=== PATIENT | male | born 1950 | race Caucasian/White ===

== ENCOUNTER → 2019-06-20 09:11 | Outpatient (CLI) | payer MEDICARE, OTHER, SELFPAY ==
--- NOTE | 2019-06-20 | DI.RAD.S_ITS ---
PROCEDURE: XR KNEE RT 3V INDICATIONS: RIGHT KNEE PAIN TECHNIQUE: 3 views of the knee were acquired. COMPARISON: None. FINDINGS: Bones: No fractures or dislocations. No suspicious bony lesions. Mild medial compartment joint space thinning. Soft tissues: No joint effusion. No suspicious soft tissue calcifications. IMPRESSION: Mild medial compartment joint space thinning, indicating mild osteoarthritis. Dictated by: Juan Finney M.D. on 06/20/2019 at 10:38 Approved by: Juan Finney M.D. on 06/20/2019 at 10:44
--- NOTE | 2019-06-20 | DI.RAD.S_ITS ---
PROCEDURE: XR HIP W PEL IF DONE RT 2V INDICATIONS: RIGHT HIP PAIN TECHNIQUE: 2 views of the hip were acquired. COMPARISON: None. FINDINGS: Bones: No fractures or dislocations. No suspicious bony lesions. The visualized pelvic ring appears intact. Mild to moderate joint space thinning along the acetabulum Soft tissues: No suspicious soft tissue calcifications or masses. IMPRESSION: Mild to moderate osteoarthritis of the right hip joint seen as joint space thinning along the acetabular roof. Dictated by: Juan Finney M.D. on 06/20/2019 at 10:44 Approved by: Juan Finney M.D. on 06/20/2019 at 10:45
== END ==
PROVIDERS: Visit Provider Family Medicine
DX: M25.551 Pain in right hip (principal); M25.561 Pain in right knee; M16.11 Unilateral primary osteoarthritis, right hip; M17.11 Unilateral primary osteoarthritis, right knee
CPT/HCPCS: 73502; 73562

== ENCOUNTER 2019-10-17 06:48 | Day surgery (SDC) | payer MEDICARE, OTHER, SELFPAY ==
[2019-10-13 07:27] VITALS: BMI 36.2
[2019-10-17 07:11] VITALS: BP 203/114; PULSE 73; RESP 16; TEMP 36.6; O2SAT 98; BMI 36.2
[2019-10-17 07:40] VITALS: BMI 36.2
== END 2019-10-17 07:55 | disposition home or self-care (01) ==
PROVIDERS: PCP Family Medicine; Visit Provider Specialist

== ENCOUNTER 2019-11-21 06:43 | Day surgery (SDC) | payer MEDICARE, OTHER, SELFPAY ==
[2019-11-10 09:30] VITALS: BMI 36.4
[2019-11-21] VITALS (9 sets, daily range): BP systolic 116–187; BP diastolic 72–119; PULSE 52–74; RESP 11–20; TEMP 36–36.2; O2SAT 93–98; BMI 36.4
[2019-11-21] MEDS: LACTATED RINGERS 1,000 ML 42 ML IV (07:30)
--- NOTE | 2019-11-21 07:46 | PM.HP.1 ---
History of Present Illness History of Present Illness Date Patient Seen: 11/21/19 Time Patient Seen: 07:46 Chief complaint: [id number] UMBILICAL HERNIA REPAIR W/POSS MESH Narrative: The patient is a gentleman here for repair of an umbilical hernia that is become symptomatic. He was scheduled in the past but did not get the instructions to stop the Xarelto. So he was rescheduled for today. Patient History Medical History Afib (Acute) Asthma (Acute) Chest pain (Acute) HTN (hypertension) (Acute) Sleep apnea (Acute) Surgical History H/O cardiac radiofrequency ablation (Acute) Hx of heart artery stent (Acute ~12/2009) Family & Social History Social History: household members spouse Tobacco & Substance use: Smoking Status Former smoker alcohol intake current Substance Use Type does not use Meds Home Medications and Allergies Home Medications Medication Instructions Recorded Confirmed Type albuterol sulfate 90 mcg/actuation 2 puff INHALATION Q6H PRN 09/06/19 11/21/19 History aerosol inhaler aspirin 81 mg tablet,delayed 81 mg PO DAILY 09/06/19 11/21/19 History release atorvastatin 80 mg tablet 80 mg PO DAILY 09/06/19 11/21/19 History chlorthalidone 25 mg tablet 12.5 mg PO DAILY tab 09/06/19 10/17/19 History finasteride 1 mg tablet 1 mg PO DAILY 09/06/19 11/21/19 History green tea leaf extract 150 mg 150 mg PO DAILY 09/06/19 11/21/19 History capsule isosorbide dinitrate 30 mg tablet 30 mg PO DAILY tab 09/06/19 11/21/19 History lisinopril 40 mg tablet 40 mg PO DAILY 09/06/19 11/21/19 History methylcellulose (laxative) 500 mg 500 mg PO DAILY 09/06/19 11/21/19 History tablet nitroglycerin 0.4 mg sublingual 0.4 mg SL Q5M PRN 09/06/19 11/10/19 History tablet terazosin 5 mg capsule 5 mg PO DAILY 09/06/19 11/21/19 History metoprolol succinate 50 mg PO DAILY 10/13/19 11/21/19 History rivaroxaban [Xarelto] 20 mg PO QPM 10/13/19 11/21/19 History Allergies Allergy/AdvReac Type Severity Reaction Status Date / Time No Known Drug Allergies Allergy Unverified 10/17/19 07:13 Review of Systems Review of Systems Narrative: No recent chest pain. Does have some exertional shortness of breath. No black or bloody bowel movements. No seizures or blackouts. No pulmonary symptoms. Exam Vital Signs (past 8 hours): - 11/21/19 07:25 Temperature 96.9 F L Pulse Rate 74 Respiratory Rate 18 Blood Pressure 187/119 H Pulse Oximetry 97 Oxygen Delivery Method Room Air Narrative Exam Narrative: Pleasant gentleman with a BMI of 36 in no apparent distress. Lungs are clear to auscultation no rales or rhonchi. Heart somewhat irregular no murmur gallop. Abdomen is protuberant soft nontender. He has an umbilical hernia. No rashes of the skin in the surgical area. Assessment & Plan Assessment & Plan narrative: Patient with an umbilical hernia for repair. The risks of bleeding infection recurrence to have been discussed with him. Will resume his Xarelto sometime in the postoperative.
--- NOTE | 2019-11-21 07:49 | PM.PREOP ---
Pre-operative Note Interval Note History & Physical reviewed/Exam performed by Physician: Yes Changes to H&P: No
[2019-11-21] MEDS: CEFAZOLIN 2 GM/100 ML FROZ.PIGGY IV (07:50)
--- NOTE | 2019-11-21 07:56 | SUR.PREOP ---
Pt stated he did not take his metoprolol today, but brought it with him. Pt had a baggie full of different pills. Metoprolol medication identified and pt took it per Dr. Salmeron's instruction prior to going in to OR. Pt left unit for the OR in stable condition.
--- NOTE | 2019-11-21 08:15 | SUR.OPER ---
Supine on padded OR bed, head on pillow, arms secured on padded arm boards at <90 degrees abduction, legs uncrossed, safety belt at thigh, tape over blanket over lower legs.
[2019-11-21] MEDS: BUPIVACAINE 0.5% (PF) VIAL 30 ML INJ (08:22)
--- NOTE | 2019-11-21 09:00 | PM.OP.1 ---
Operative Date/Time/Diagnoses Date of procedure: 11/21/19 Time of procedure: 09:00 Pre-op diagnosis: Umbilical hernia reducible Post-op diagnosis: same Procedure & Clinicians Procedure: Repair Same procedure as scheduled: Yes Indications: Symptomatic umbilical hernia Surgeon: Claudio Hart Click Yes if Unassisted: Yes Anesthesia Type: General Operative Notes Findings: Small defect. Contained omentum and preperitoneal fat Closure Type: primary Specimen(s): none sent Prosthetic devices, grafts, tissues, transplants, or devices: None Estimated Blood Loss (mL): 5 Blood products transfused: none Procedure in detail: The patient is placed supine on the operating room table and underwent general LMA anesthesia. He was prepped and draped in the usual fashion. A curvilinear incision was made beneath the umbilicus after injecting local into the region. Incision was carried down level the fascia. The hernia sac was found and entered and its contents reduced. This was principally omentum. The sac was dissected off the overlying skin and subcu fat. It was removed at the fascial level. The fascia was cleared of tissue. The defect was quite small and barely admitted the tip of finger. I chose not to use mesh. A 1 Ethibond suture was used to close the defect in using [id number] sutures. The umbilicus was tacked down to the fascia with an interrupted 3 0 Vicryl. The subcu was closed with interrupted 3 0 Vicryl and skin was closed with running 4 0 Vicryl subcuticular stitch and Steri-Strips. Complications: none Post-operative Condition: stable Disposition: PACU Plan for aftercare: Follow-up in the office
--- NOTE | 2019-11-21 09:43 | SUR.PHASEII ---
PT ARRIVED TO PHASE II VIA STRETCHER. PT SITTING UP AND EATING ICE CHIPS WITHOUT ANY DIFFICULTLY. PT DENIES ANY PAIN/DISCOMFORT OR NAUSEA AT THIS TIME. DRSG OBSERVED TO BE C/D/I. PT BROUGHT TO BEDSIDE. REVIEWED DC INSTRUCTIONS WITH PT AND PT SPOUSE. BED IN LOWEST POSITION AND CALL LIGHT GIVEN TO PT. PT APPEARS COMFORTABLE AT THIS TIME.
--- NOTE | 2019-11-21 10:28 | SUR.PHASEII ---
Report from Rosa, pt waiting for MD to sign prescription, once done pt ready to go. dressed with assist from , pt left when ready and left in stable condition.
== END 2019-11-21 10:25 | disposition home or self-care (01) ==
PROVIDERS: PCP Family Medicine; Visit Provider Specialist
PROC: (CPT 49585; principal; 2019-11-21 07:45)
DX: K42.0 Umbilical hernia with obstruction, without gangrene (principal); I48.91 Unspecified atrial fibrillation; J45.909 Unspecified asthma, uncomplicated; I10 Essential (primary) hypertension; G47.30 Sleep apnea, unspecified; Z87.891 Personal history of nicotine dependence
CPT/HCPCS: 49585; J0690; J1100; J1885; J2250; J2405; J2704; J3010

== ENCOUNTER → 2020-01-18 15:38 | Outpatient (CLI) | payer MEDICARE, OTHER, SELFPAY ==
--- NOTE | 2020-01-18 | DI.RAD.S_ITS ---
PROCEDURE: XR ANKLE LT MIN 3V INDICATIONS: left ankle pain TECHNIQUE: 3 views of the ankle were acquired. COMPARISON: None. FINDINGS: Bones: Nondisplaced fracture of the tip of the lateral malleolus. Overlying soft tissue swelling Numerous vascular calcifications incidentally noted. IMPRESSION: Lateral malleolar fracture. Soft tissue swelling. Dictated by: Toy Chester M.D. on 01/18/2020 at 16:28 Approved by: Toy Chester M.D. on 01/18/2020 at 16:30
== END ==
PROVIDERS: PCP Family Medicine; Referring Provider Family Medicine; Visit Provider Family Medicine
DX: M25.572 Pain in left ankle and joints of left foot (principal); S82.65XA Nondisplaced fracture of lateral malleolus of left fibula, initial encounter for closed fracture; X58.XXXA Exposure to other specified factors, initial encounter
CPT/HCPCS: 73610

== ENCOUNTER → 2020-09-01 08:24 | Outpatient (CLI) | payer MEDICARE, OTHER, SELFPAY ==
[2020-09-03 01:56] LABS: COVID19 Sendout Not Detected (Not Detect)
== END ==
PROVIDERS: PCP Family Medicine; Visit Provider Student in an Organized Health Care Education/Training Program
DX: Z11.59 Encounter for screening for other viral diseases (principal)
CPT/HCPCS: 87635

== ENCOUNTER 2020-09-04 08:20 | Day surgery (SDC) | payer MEDICARE, OTHER, SELFPAY ==
[2020-09-04] VITALS (10 sets, daily range): BP systolic 164–200; BP diastolic 103–128; PULSE 68–87; RESP 14–18; TEMP 36.2–36.9; O2SAT 96–98; BMI 35.8
--- NOTE | 2020-09-04 | PATH_ITS ---
[facility] Accession Number: [id number] . 01 Material submitted: . PART A: colon - COLON POLYPS AT 60CM PART B: colon - TRANSVERSE COLON POLYP AT 160CM . 01 Clinical history: . A: POLYPS X2 . 02 Diagnosis: A. Colon Polyps at 60 cm, Biopsies: Hyperplastic polyp x2. . B. Transverse Colon Polyp at 160 cm, Biopsy: Sessile serrated adenoma. MRV 09/07/2020 1236 Local . 02 Electronically signed: . Dandre Olguin MD, PhD, Pathologist NPI- [id number] . 01 Gross description: . A. Received in formalin, labeled colon polyps at 60 cm, and consists of two wells-pink polyps measuring 0.6 x 0.5 x 0.3 cm in aggregate. The margins are inked blue. The specimen is entirely submitted in cassette A1. B. Received in formalin, labeled polyp at transverse colon 130 cm, and consists of a 1.0 x 0.7 x 0.4 cm wells-pink polyp. The margin is inked blue. The specimen is bisected and entirely submitted in cassette B1. ([id number]) /MRV 09/05/2020 1258 Local . 02 Pathologist provided ICD-10: D12.3, K63.5 . 02 CPT . 787091, [id number] Performed at: 01 [facility] [address], [place], [place] [id number] MD Eugenio Rich MD Phone: [phone] Performed at: [facility] [address] [place], [place] [id number] MD hCristel Watson MD Phone: [phone]
[2020-09-04] MEDS: LACTATED RINGERS 1,000 ML 200 ML IV ×2 (08:59→11:11)
--- NOTE | 2020-09-04 10:00 | PM.HP.1 ---
History of Present Illness History of Present Illness Date Patient Seen: 09/04/20 Time Patient Seen: 09:45 Chief complaint: SCREENING COLONOSCOPY Narrative: The patient is a gentleman here for a screening colonoscopy. Last exam was over 9 years ago. Patient History Medical History Afib (Acute) Asthma (Acute) Chest pain (Acute) HTN (hypertension) (Acute) Sleep apnea (Acute) Surgical History (Updated 09/04/20 @ 10:01 by Claudio Hart MD) H/O cardiac radiofrequency ablation (Acute) History of umbilical hernia repair (Acute) Hx of heart artery stent (Acute ~12/2009) Family & Social History Social History: household members spouse Tobacco & Substance use: Smoking Status Former smoker alcohol intake current alcohol intake frequency a few times a week Substance Use Type does not use Meds Home Medications and Allergies Home Medications Medication Instructions Recorded Confirmed Type albuterol sulfate 90 mcg/actuation 2 puff INHALATION Q6H PRN 09/06/19 09/04/20 History aerosol inhaler aspirin 81 mg tablet,delayed 81 mg PO DAILY 09/06/19 09/04/20 History release atorvastatin 80 mg tablet 80 mg PO DAILY 09/06/19 09/04/20 History finasteride 1 mg tablet 1 mg PO DAILY 09/06/19 09/04/20 History green tea leaf extract 150 mg 150 mg PO DAILY 09/06/19 09/04/20 History capsule isosorbide dinitrate 30 mg tablet 30 mg PO DAILY tab 09/06/19 09/04/20 History lisinopril 40 mg tablet 40 mg PO DAILY 09/06/19 09/04/20 History methylcellulose (laxative) 500 mg 500 mg PO DAILY 09/06/19 09/04/20 History tablet nitroglycerin 0.4 mg sublingual 0.4 mg SL Q5M PRN 09/06/19 09/04/20 History tablet terazosin 5 mg capsule 5 mg PO DAILY 09/06/19 09/04/20 History metoprolol succinate 50 mg PO DAILY 10/13/19 09/04/20 History oxycodone-acetaminophen [Percocet] See Rx Instructions .ROUTE 11/21/19 09/04/20 Rx .COMPLEX PRN #14 tab rivaroxaban 20 mg tablet 20 mg PO QPM 08/27/20 09/04/20 History etodolac 1 mg BID 09/04/20 09/04/20 History Allergies Allergy/AdvReac Type Severity Reaction Status Date / Time No Known Drug Allergies Allergy Verified 09/04/20 08:37 Review of Systems Review of Systems Narrative: Atrial fibrillation rate controlled with beta lópez. Chronically anticoagulated. Bruises easily. On medication for hypertension. History of cardiac disease on medication for same. No recent chest pain. No unusual shortness of breath. ROS: Yes All systems reviewed with the patient and are negative except as otherwise documented Exam Vital Signs (past 8 hours): - 09/04/20 08:30 09/04/20 08:45 09/04/20 09:00 Temperature 97.1 F L Pulse Rate 83 83 84 Respiratory Rate 18 16 Blood Pressure 200/120 H 187/126 H 184/103 H Pulse Oximetry 98 97 09/04/20 09:19 Temperature Pulse Rate 87 Respiratory Rate 14 Blood Pressure 181/110 H Pulse Oximetry 97 Oxygen Delivery Method Room Air Narrative Exam Narrative: Pleasant cooperative patient no apparent distress. Lungs are clear to auscultation. No rales or rhonchi. Heart irregularly irregular rate and rhythm no murmur gallop. Abdomen is soft protuberant nontender without mass. No obvious hernias. Scar from umbilical hernia repair seen Patient is alert and oriented x3. Assessment & Plan Assessment & Plan narrative: The patient for a screening colonoscopy. I have discussed the procedure with them. Risks of bleeding, perforation which would necessitate major operation, failure to find remove all lesions, the potential tattoo were all discussed. All questions were answered. They wished to proceed.
--- NOTE | 2020-09-04 10:03 | PM.PREOP ---
Pre-operative Note COVID-19 COVID-19 status: Negative Result date/Date tested (Pos, Neg/Pending): 09/01/20 Interval Note History & Physical reviewed/Exam performed by Physician: Yes Changes to H&P: No ASA Class (for procedural sedation): III
[2020-09-04] MEDS: METOPROLOL TARTRATE 5 MG/5 ML INJ IV ×2 (10:10→10:16)
[2020-09-04] MEDS: HYDRALAZINE 20 MG/ML VIAL 10 MG IV (10:22)
--- NOTE | 2020-09-04 10:41 | SUR.PREOP ---
Dr Hart updated re: BP. No further orders at this time.
[2020-09-04] MEDS: MIDAZOLAM 5 MG/5 ML VIAL IV (10:48)
[2020-09-04] MEDS: fentaNYL 250 MCG/5 ML INJ IV (10:48)
--- NOTE | 2020-09-04 11:11 | PM.OP.ENDO ---
Operative Date/Time/Diagnoses Date of procedure: 09/04/20 Time of procedure: 11:12 Pre-op diagnosis: Screening examination. Last colonoscopy over 9 years ago Procedure & Clinicians Study performed: Colonoscopy with hot snare polypectomy and cauterization of small lesions Same procedure as scheduled: Yes Indications: Screening Surgeon: Claudio Hart Procedure Notes SCOAP/Timeout: Performed. Procedure in detail: The patient was placed in the left lateral decubitus position and underwent IV sedation directed by the surgeon consisting of fentanyl and Versed. He was also given medication for his blood pressure including IV metoprolol and hydralazine. This brought his blood pressure down to a high but acceptable level. Digital exam was unremarkable though I could not feel his prostate well due to his anatomy. The scope was inserted and advanced through the rectum into the sigmoid, descending, transverse, and ascending colon. Two polyps were identified near when another it at about 60 cm from the anal verge. These were removed with hot snare and appeared to be completely removed. A Stiffener was inserted and pressure applied and we ultimately made our way into the cecum. The cecum was reached identified by the ileocecal valve.. The scope was gradually brought out. Additional Polyps were found at the proximal transverse colon and at 130 cm. The lesion in the proximal transverse colon was attempted to be snared but essentially this destroyed most of the lesion and the little residual was cauterized. The lesion at 130 cm from the anal verge was a flat lesion and snared and the surrounding cauterized and it too appeared to be completely destroyed/removed. There were 2 other small polypoid lesions which I cauterized. The scope ultimately was retroflexed in the rectum. The appearance was normal except for scarring on old hemorrhoidal disease. No active ulceration or inflammation noted.. The scope was removed and the patient tolerated the procedure well. The prep was very good. Scope withdrawal time: 8min(20 total) Sedation minutes: 43 Findings: polyp (Multiple) Specimen(s): other (Polyps) Complications: none Post-procedure Recommendations: Colonscopy in 3 years Follow up: as needed Disposition: PACU
--- NOTE | 2020-09-04 11:56 | SUR.PHASEII ---
Patient instructed to take his blood pressure medications as soon as he returns home. BP 175/105; asymptomatic. Two cups of coffee tolerated without difficulty. Home with in stable condition. All belongings returned to patient.
== END 2020-09-04 11:57 | disposition home or self-care (01) ==
PROVIDERS: PCP Student in an Organized Health Care Education/Training Program; Referring Provider Specialist; Visit Provider Specialist
PROC: 0DJD8ZZ Inspection of Lower Intestinal Tract, Via Natural or Artificial Opening Endoscopic (ICD-10-PCS; CPT 45378; principal; 2020-09-04 09:15)
DX: Z12.11 Encounter for screening for malignant neoplasm of colon (principal); I48.91 Unspecified atrial fibrillation; J45.909 Unspecified asthma, uncomplicated; I10 Essential (primary) hypertension; G47.33 Obstructive sleep apnea (adult) (pediatric); D12.3 Benign neoplasm of transverse colon
CPT/HCPCS: 45385; 99152; 99153; J0360; J2250; J3010

== ENCOUNTER → 2020-09-06 13:59 | Outpatient (CLI) | payer MEDICARE, OTHER, SELFPAY ==
[2020-09-06 15:13] LABS: Add Manual Diff / Slide Review NO; Basophils Absolute Auto 0 /uL (0-100); Basophils Percent Auto 0.6 % (0-2); Eosinophils Absolute Auto 100 /uL (0-450); Hematocrit 39.6 % (41-53); Hemoglobin 13.4 g/dL (13.5-17.5); Lymphocytes Absolute Auto 1600 /uL (1100-4500); Lymphocytes Percent Auto 32.8 % (25-40); Mean Corpuscular HGB Conc 33.9 % (30-36); Mean Corpuscular Volume 88.3 fL (80-100); Monocytes Absolute Auto 400 /uL (0-900); Monocytes Percent Auto 9.4 % (3-14); Neutrophils Absolute Auto 2600 /uL (1500-7000); Neutrophils Percent Auto 55.2 % (50-75); Platelet Count 165 X10^3/uL (150-400); Red Blood Cell Count 4.48 X10^6/uL (4.5-5.9); Red Cell Distribution Width 13.8 % (11.6-14.8); White Blood Cell Count 4.7 X10^3/uL (4.5-11.0)
== END ==
PROVIDERS: PCP Student in an Organized Health Care Education/Training Program; Referring Provider Specialist; Visit Provider Specialist
DX: K62.5 Hemorrhage of anus and rectum (principal)
CPT/HCPCS: 36415; 85025; 99213

== ENCOUNTER → 2021-06-14 08:31 | Outpatient (CLI) | payer MEDICARE, OTHER, SELFPAY ==
--- NOTE | 2021-06-14 | DI.RAD.S_ITS ---
PROCEDURE: XR LUMBAR SPINE 2-3V INDICATIONS: Low back pain TECHNIQUE: 3 views of the lumbar spine were acquired. COMPARISON: None. FINDINGS: Bones: 5 [id number] vertebrae are present. There is normal bony alignment. No vertebral body compression fractures. No suspicious bony lesions. There is moderate degenerative disc disease along the lumbosacral spine from thoracolumbar junction to the lumbosacral junction. No abnormal subluxation is present, no prior compression fracture is seen. Soft tissues: Overlying bowel gas pattern is normal. No suspicious soft tissue calcifications. IMPRESSION: Moderate degenerative disc disease and facet osteoarthritis along the lumbosacral spine becoming progressively more prominent at the facet joints from L3 through S1 to the degree that significant spinal and foraminal stenosis likely is present at least at L4-5 and L5-S1. Dictated by: Juan Finney M.D. on 06/14/2021 at 10:01 Approved by: Juan Finney M.D. on 06/14/2021 at 10:02
== END ==
PROVIDERS: PCP Student in an Organized Health Care Education/Training Program; Referring Provider Student in an Organized Health Care Education/Training Program; Visit Provider Student in an Organized Health Care Education/Training Program
DX: M54.5 Low back pain (principal); M51.36 Other intervertebral disc degeneration, lumbar region; M51.37 Other intervertebral disc degeneration, lumbosacral region; M47.816 Spondylosis without myelopathy or radiculopathy, lumbar region; M47.817 Spondylosis without myelopathy or radiculopathy, lumbosacral region
CPT/HCPCS: 72100

== ENCOUNTER 2021-09-13 22:32 | Emergency (ER) | payer MEDICARE, OTHER, SELFPAY ==
[2021-09-13 22:50] VITALS: BP 209/116; PULSE 80; RESP 18; TEMP 36.4; O2SAT 99; BMI 34.3
--- NOTE | 2021-09-13 23:37 | ED_ITS ---
HPI - Neck Pain/Injury General Chief Complaint: Neck Pain/Injury Stated Complaint: lower back and neck pain Time Seen by Provider: 09/13/21 23:36 Source: patient and other (surgical PA) Mode of arrival: EMS Limitations: no limitations History of Present Illness HPI Narrative: This is a 70-year-old gentleman who had an outpatient laminectomy and a surgical site earlier today. Patient states his surgery started about 2:00 p.m. and he was completed by round 5:00 p.m.. He noted that he was having some neck pain on both sides of neck particularly with rotation of his neck. He was given some pain medication IV there around 5:00 p.m. and discharged. He and his picked up his prescription for Percocet and had 1 tablet around 9:00 p.m. this evening and 1 tablet of hydroxyzine. His pain continued to worsen. His most comfortable position was leaning slightly forward but he has had difficulty finding a position of comfort. He states movement of his extremities does not seem to make it worse. He does not have any radiation of pain down his arm. He does not have any radiation to his chest. Mostly rotation, flexion extension seems to worsen it. Patient has had some increasing pain at his laminectomy site. He has some pain that shoots down towards his buttocks. He has not had any paresthesias or numbness or tingling down his lower extremities. He has not had any loss of bowel or bladder control. Patient has not had fevers. He denies chest pain or shortness of breath. He was nauseated but did EMS gave him some antinausea medication and then all which was helpful. He has been hypertensive. He does have a history of hypertension, atrial fibrillation and is on rivaroxaban and has been off his anticoagulant for several days. He does have a cardiac stent that was placed about 11 years ago. He takes terazosin, isosorbide, metoprolol and lisinopril daily. Patient states he has had all of his normal blood pressure medications. He also takes atorvastatin. He has exercise-induced asthma and only uses albuterol for this. Related Data Home Medications Medication Instructions Recorded Confirmed albuterol sulfate 90 mcg/actuation 2 puff INHALATION Q6H PRN 09/06/19 09/06/20 aerosol inhaler (Ventolin HFA) aspirin 81 mg tablet,delayed 81 mg PO DAILY 09/06/19 09/06/20 release (Adult Aspirin Regimen) atorvastatin 80 mg tablet (Lipitor) 80 mg PO DAILY 09/06/19 09/06/20 finasteride 1 mg tablet (Propecia) 1 mg PO DAILY 09/06/19 09/06/20 green tea leaf extract 150 mg 150 mg PO DAILY 09/06/19 09/06/20 capsule isosorbide dinitrate 30 mg tablet 30 mg PO DAILY tab 09/06/19 09/06/20 lisinopril 40 mg tablet 40 mg PO DAILY 09/06/19 09/06/20 methylcellulose (laxative) 500 mg 500 mg PO DAILY 09/06/19 09/06/20 tablet (Citrucel) nitroglycerin 0.4 mg sublingual 0.4 mg SL Q5M PRN 09/06/19 09/06/20 tablet (Nitrostat) terazosin 5 mg capsule 5 mg PO DAILY 09/06/19 09/06/20 metoprolol succinate 50 mg 50 mg PO DAILY 10/13/19 09/06/20 tablet,extended release 24 hr rivaroxaban 20 mg tablet 20 mg PO QPM 08/27/20 09/06/20 etodolac 400 mg tablet 1 mg BID 09/04/20 09/06/20 Previous Rx's Medication Instructions Recorded oxycodone-acetaminophen 5 mg-325 See Rx Instructions .ROUTE 11/21/19 mg tablet (Percocet) .COMPLEX PRN #14 tab oxycodone 5 mg tablet 5 mg PO QID PRN #14 tab 09/14/21 Allergies Allergy/AdvReac Type Severity Reaction Status Date / Time No Known Drug Allergies Allergy Verified 09/06/20 15:27 Review of Systems Review of Systems ROS Unobtainable: All systems reviewed & are unremarkable except as noted in HPI and below Patient History Medical History (Updated 09/14/21 @ 04:03 by Mana Leon DO) Afib Asthma Chest pain HTN (hypertension) Sleep apnea Surgical History (Updated 09/14/21 @ 04:03 by Mana Leon DO) H/O cardiac radiofrequency ablation History of umbilical hernia repair Hx of heart artery stent (~12/2009) Social History household members: spouse Smoking Status: Former smoker alcohol intake: current Smoking Status: Former smoker alcohol intake frequency: a few times a week Substance Use Type: does not use Exam Narrative Exam Narrative: GEN: well nourished, well appearing male, alert and oriented x 3, patient appears to be in mild to moderate distress. HEENT: Atraumatic, pupils are equal round reactive to light, extraocular movements are intact, nares are clear. HEART: Regular rate and rhythm without murmur, clicks, rubs. No carotid bruits, pulses are equal in upper and lower extremities LUNGS:Lungs clear to auscultation, no wheezes, rales, crackles, chest moves symmetrically ABD:bowel sounds normal, soft, non-tender, no guarding, rebound, rigidity, no masses noted, no hepatosplenomegaly :No CVA tenderness BACK: No cervical, thoracic or lumbar vertebral point tenderness. Patient has mildly decreased range of motion of the neck but can rotate easily to the 45?. Patient has some tension and pain in the paraspinal tissues of the lower cervical region but does not have any point tenderness. No bony tenderness. Rectal exam is deferred. Muscle strength is 5/5 in upper and lower extremities. Patient does not have any increased pain with range of motion or lifting his legs off the bed. Dorsalis pedis and tibialis pulses are 2+, 2+ pulses bilateral radial. Sensation is intact in upper and lower extremities. MSCL: Non-tender, no muscle atrophy, full range of motion of all 4 extremities. NEURO:CN 2-12 intact, sensation normal SKIN: Incision site, Initial Vital Signs Initial Vital Signs: Vital Signs Temperature 97.6 F 09/13/21 22:50 Pulse Rate 80 09/13/21 22:50 Respiratory Rate 18 09/13/21 22:50 Blood Pressure 209/116 H 09/13/21 22:50 Pulse Oximetry 99 09/13/21 22:50 Course Orders Ordered: Discontinued Medications Hydromorphone HCl (Hydromorphone 1 Mg Inj) 1 mg IV NOW ONE Stop: 09/14/21 00:58 Last Admin: 09/14/21 01:05 Dose: 1 mg Documented by: MAJO Hydromorphone HCl (Hydromorphone 1 Mg Inj) 1 mg IV NOW ONE Stop: 09/14/21 02:53 Last Admin: 09/14/21 02:55 Dose: 1 mg Documented by: MAJO Lorazepam (Lorazepam 2 Mg/Ml Inj) 1 mg IV NOW ONE Stop: 09/14/21 00:03 Last Admin: 09/14/21 00:13 Dose: 1 mg Documented by: MAJO Metoprolol Tartrate (Metoprolol Tartrate 5 Mg/5 Ml Inj) 5 mg IV Q5M STEFANIA Stop: 09/14/21 01:11 Last Admin: 09/14/21 01:35 Dose: 5 mg Documented by: Admin: 09/14/21 01:15 Dose: 5 mg Documented by: Admin: 09/14/21 01:05 Dose: 5 mg Documented by: MAJO Morphine Sulfate (Morphine 4 Mg/Ml Inj) 4 mg IV NOW ONE Stop: 09/14/21 00:03 Last Admin: 09/14/21 00:12 Dose: 4 mg Documented by: MAJO Oxycodone HCl (Oxycodone Ir 5 Mg Tablet) 10 mg PO NOW ONE Stop: 09/14/21 04:06 Last Admin: 09/14/21 04:18 Dose: 10 mg Documented by: MAJO Vital Signs Vital signs: Vital Signs - 8 hr 09/13/21 22:50 09/14/21 00:53 09/14/21 01:00 Temperature 97.6 F Pulse Rate 80 89 Respiratory Rate 18 Blood Pressure 209/116 H 224/132 H 200/137 H Pulse Oximetry 99 98 09/14/21 01:10 09/14/21 01:15 09/14/21 01:20 Temperature Pulse Rate Respiratory Rate Blood Pressure 182/113 H 169/97 H 166/96 H Pulse Oximetry 09/14/21 01:25 09/14/21 01:30 09/14/21 01:50 Temperature Pulse Rate 70 Respiratory Rate Blood Pressure 164/92 H 135/84 173/104 H Pulse Oximetry 98 09/14/21 02:00 09/14/21 02:08 09/14/21 02:10 Temperature Pulse Rate 63 63 55 L Respiratory Rate Blood Pressure 1598/89 H 146/81 H 161/95 H Pulse Oximetry 96 95 95 09/14/21 02:15 09/14/21 02:20 09/14/21 02:25 Temperature Pulse Rate 56 L 60 59 L Respiratory Rate Blood Pressure 151/84 H 151/88 H 147/90 H Pulse Oximetry 94 95 95 09/14/21 02:30 09/14/21 03:00 09/14/21 03:30 Temperature Pulse Rate 56 L 62 61 Respiratory Rate Blood Pressure 146/81 H Pulse Oximetry 95 96 95 09/14/21 04:00 09/14/21 04:55 09/14/21 04:56 Temperature Pulse Rate 61 79 Respiratory Rate Blood Pressure 189/103 H Pulse Oximetry 95 99 98 MDM - Neck Pain/Injury Lab Data Result diagrams: 09/14/21 00:38 09/14/21 00:38 Labs: Lab Results 09/14/21 09/14/21 09/14/21 Range/Units 00:38 00:38 00:38 WBC 9.1 (4.5-11.0) X10^3/uL RBC 4.80 (4.5-5.9) X10^6/uL Hgb 14.9 (13.5-17.5) g/dL Hct 42.3 (41-53) % MCV 88.1 (80-100) fL MCH 31.1 (26-34) PG MCHC 35.3 (30-36) % RDW 13.4 (11.6-14.8) % Plt Count 164 (150-400) X10^3/uL Neut % (Auto) 92.0 H (50-75) % Lymph % (Auto) 5.1 L (25-40) % [place] % (Auto) 2.6 L (3-14) % Eos % (Auto) 0.1 L (2-4) % Baso % (Auto) 0.2 (0-2) % Neut # (Auto) 8400 H (5141-4499) /uL Lymph # (Auto) 500 L (5020-4873) /uL [place] # (Auto) 200 (0-900) /uL Eos # (Auto) 0 (0-450) /uL Baso # (Auto) 0 (0-100) /uL PT 12.1 (10.1-12.7) SECONDS INR 1.1 (0.9-1.3) APTT 29 (26.4-36.2) SECONDS Sodium 138 (137-145) mmol/L Potassium 3.9 (3.4-5.1) mmol/L Chloride 105 (98-107) mmol/L Carbon Dioxide 23 (22-32) mmol/L BUN 15 (9-20) mg/dL Creatinine 0.70 (0.66-1.25) mg/dL Estimated GFR > 60.0 (>60) mL/min BUN/Creatinine Ratio 21.4 (6-22) Glucose 161 H (80-110) mg/dL Calcium 9.7 (8.4-10.2) mg/dL Total Creatine Kinase (55-170) U/L CK-MB (CK-2) (<2.37) ng/mL CK-MB (CK-2) Rel Index (1.5-5.0) % Troponin I (0.01-0.034) ng/mL 09/14/21 Range/Units 00:38 WBC (4.5-11.0) X10^3/uL RBC (4.5-5.9) X10^6/uL Hgb (13.5-17.5) g/dL Hct (41-53) % MCV (80-100) fL MCH (26-34) PG MCHC (30-36) % RDW (11.6-14.8) % Plt Count (150-400) X10^3/uL Neut % (Auto) (50-75) % Lymph % (Auto) (25-40) % [place] % (Auto) (3-14) % Eos % (Auto) (2-4) % Baso % (Auto) (0-2) % Neut # (Auto) (7735-6703) /uL Lymph # (Auto) (2547-6629) /uL [place] # (Auto) (0-900) /uL Eos # (Auto) (0-450) /uL Baso # (Auto) (0-100) /uL PT (10.1-12.7) SECONDS INR (0.9-1.3) APTT (26.4-36.2) SECONDS Sodium (137-145) mmol/L Potassium (3.4-5.1) mmol/L Chloride (98-107) mmol/L Carbon Dioxide (22-32) mmol/L BUN (9-20) mg/dL Creatinine (0.66-1.25) mg/dL Estimated GFR (>60) mL/min BUN/Creatinine Ratio (6-22) Glucose (80-110) mg/dL Calcium (8.4-10.2) mg/dL Total Creatine Kinase 998 H (55-170) U/L CK-MB (CK-2) 18.50 H (<2.37) ng/mL CK-MB (CK-2) Rel Index 1.9 (1.5-5.0) % Troponin I < 0.012 (0.01-0.034) ng/mL Imaging Data CT - cervical spine: Radiologist's Impression: [address] [address] [address] Scan Report Signed Patient: Dorian Holcomb MR#: [id number] : 1950 Acct:[id number] Age/Sex: 70 / M Date of Service: 09/14/21 Loc: ED Accession Number: [id number] ?? Procedure: CT cervical spine wo con Ordering Provider: Mana Leon D.O. PROCEDURE:? CT CERVICAL SPINE WO CON ? INDICATIONS:? 70-year-old male with neck pain status post lumbar laminectomy postop day 1 ? TECHNIQUE:? Noncontrast 3 mm thick sections acquired from the skull base to the T4 level.? Sagittal and coronal reformats were then constructed.? For radiation dose reduction, the following was used:? automated exposure control, adjustment of mA and/or kV according to patient size.? ? COMPARISON:? None. ? FINDINGS:? Image quality:? Excellent.? ? Bones:? No fractures or dislocations.? Visualized superior ribs are intact.? Multilevel degenerative disc disease noted throughout the mid to lower cervical spine with anterior osteophytes and bilateral foraminal stenosis throughout the exam. ? Soft tissues:? Soft tissue air noted tracking along the fascial planes particularly in the left neck is likely postoperative.? Additionally, there is air in the intracanalicular extradural space, likely epidural space, throughout the cervical spine, but particularly at the C2 level where there is some mass effect.? No intrathecal air. ? Incidental metallic device in the right external auditory canal, likely hearing aid. ? ? IMPRESSION:? ? 1. Scattered epidural air in the cervical spine is likely a sequelae of recent surgery.? No intrathecal or intracranial air.? There is associated air in the fascial plan es of the left neck as well.? ? 2. Multilevel degenerative disease and arthropathy, [id number] ? Note:? Critical results were discussed with Dr. Leon at 12:15 AM [place] time on 09/14/21 ? Approved by: Brayan Allen M.D. on 09/14/2021 at 0:24? CT chest/abd/pelvis: Radiologist's Impression: Cast with the spinal canal with paraspinal soft tissues as described above findings are likely related to recent surgery. No mediastinal air or pneumothorax present. Laminectomy levels L2 and L3 with high density material within the spinal canal these levels filling the canal, obscuring and displacing the nerve root extending to posterior paraspinal musculature consistent with postsurgical blood. Borders of complex fluid colle ction or poorly defined but measured 2.2 x 5.6 cm and transverse in cephalocaudal dimension respectively gas is also identified in spinal canal and extend cephalad along the extradural space. It is noted the collection feels the canal at these levels and obscures last displaces the nerve roots. ECG Data Attestation: I personally reviewed and interpreted this ECG as follows: Prior ECG tracings: not available for review Interpretation: AFib rate of 78 QRS of 104 and QTC 433. No acute ST elevation depression noted. MDM Narrative Medical decision making narrative: This is a 70-year-old male who is status post laminectomy today. Patient states medially postop he had neck pain his laminectomy was at the L2-L3 level an outpatient surgical facility. Patient states he did share this with the staff there he received some medication for his pain which was IV fentanyl and was discharged shortly thereafter. He has had increasing pain particularly in his neck. Patient has had some pain in his back and radiating into his buttocks but states majority of his pain is his neck and he has discomfort with movement and has had difficulty finding a position of comfort. After discharge patient has taken 1 dose of hydroxyzine and Percocet orally. He had not taken any other additional medications until EMS was contacted for transport. He denies any new numbness or tingling this times in his arms or legs. No weakness. He has urinated several times postoperatively. He does have a history of atrial fibrillation and is on Xarelto which was stopped several days prior to his surgery. He has taken his home blood pressure medications today and is quite hypertensive upon arrival. Suspected patient's pain may be secondary to be prone from his procedure but is an atypical location so imaging was obtained which does show air in the soft tissue and intra canal extradural space. No intrathecal or intracranial air is noted. Discussed with his General surgery team who stated this seemed atypical based on the location of his surgery. He also had some bleeding from his surgical site but had sto pped on evaluation. Dressing was replaced and appears intact. Plan to obtain additional imaging including CT of chest, abdomen pelvis to more fully evaluate. This shows gas within the spinal canal and paraspinal soft tissue. Clinically from patient's neuro exam does not appear to be canal compromise. There is noted to be a density fluid collection at level of laminectomy consistent with postsurgical hematoma. Case was discussed with patient's Orthopedic surgery team, Speedy Martins. Reviewed all imaging. Recommends if no neurologic changes and pain controlled to d/c home. If intractable pain or neurologic channges would transfer to [place]. Patient was able to ambulate to/from b athroom with walker. Patient was uncomfortable but did well. Discussed with patient and plan for d/c home at this time with adjustment to medications for pain management and strict return precautions. Discharge Plan Departure Patient Disposition: Home Clinical Impression: Neck pain, S/P lumbar laminectomy, Postoperative hematoma Activity Restrictions/Additional Instructions: Follow up with your orthopedic surgeon this week. You may take 1 percocet (oxycodone 5mg + tylenol 325mg) every 4 hours. You may take 1 oxycodone every 4 hours with your Percocet if needed. Monitor the amount of Tylenol total in 24 hours. Maximum dose is 3000 mg in 24 hours. You may also take hydroxyzine every 4 hours as prescribed. Take Valium 1 tablet every 8 hours as needed. You can start to space these medications out more over time and take them less frequently. You can take both the narcotic, hydroxyzine and Valium together or you can take the narcotic with either hydroxyzine or Valium or just the narcotic pain medicine. Start your aspirin as instructed by her orthopedic surgeon. I would continue to hold your rivaroxaban (blood thinner) if still bleeding. If this has not stopped by Thursday call to discuss with her orthopedic surgeon for further direction. Continue your other home medications as prescribed. Please return for fevers, increasing or uncontrolled pain, new numbness, tingl ing or weakness, loss of bowel or bladder control or inability to urinate, warmth, redness or signs of infection her incision, worsening neck or back pain or other new or concerning symptoms. Prescriptions: New oxycodone 5 mg tablet 5 mg PO QID PRN (Reason: pain) Qty: 14 RF: 0 No Action rivaroxaban 20 mg tablet 20 mg PO QPM RF: 0 albuterol sulfate [Ventolin HFA] 90 mcg/actuation HFA aerosol inhaler 2 puff INHALATION Q6H PRN (Reason: Shortness Of Breath) RF: 0 nitroglycerin [Nitrostat] 0.4 mg tablet, sublingual 0.4 mg SL Q5M PRN (Reason: Chest Pain) RF: 0 lisinopril 40 mg tablet 40 mg PO DAILY RF: 0 isosorbide dinitrate 30 mg tablet 30 mg PO DAILY RF: 0 atorvastatin [Lipitor] 80 mg tablet 80 mg PO DAILY RF: 0 finasteride [Propecia] 1 mg tablet 1 mg PO DAILY RF: 0 terazosin 5 mg capsule 5 mg PO DAILY RF: 0 Citrucel 500 mg tablet 500 mg PO DAILY RF: 0 green tea leaf extract 150 mg capsule 150 mg PO DAILY RF: 0 aspirin [Adult Aspirin Regimen] 81 mg tablet,delayed release (DR/EC) 81 mg PO DAILY RF: 0 metoprolol succinate 50 mg Tablet Extended Release 24 Hr 50 mg PO DAILY RF: 0 oxycodone-acetaminophen [Percocet] 5-325 mg tablet See Rx Instructions .ROUTE .COMPLEX PRN (Reason: painful procedure) Qty: 14 RF: 0 etodolac 400 mg tablet 1 mg BID RF: 0 Referrals: Cleveland Paez MD [Non-Staff] - Isabel Mckeon MD [Primary Care Provider] -
[2021-09-14] VITALS (25 sets, daily range): BP systolic 135–1598; BP diastolic 81–137; PULSE 55–89; O2SAT 94–99
--- NOTE | 2021-09-14 00:02 | DI.CT.S_ITS ---
PROCEDURE: CT CERVICAL SPINE WO CON INDICATIONS: 70-year-old male with neck pain status post lumbar laminectomy postop day 1 TECHNIQUE: Noncontrast 3 mm thick sections acquired from the skull base to the T4 level. Sagittal and coronal reformats were then constructed. For radiation dose reduction, the following was used: automated exposure control, adjustment of mA and/or kV according to patient size. COMPARISON: None. FINDINGS: Image quality: Excellent. Bones: No fractures or dislocations. Visualized superior ribs are intact. Multilevel degenerative disc disease noted throughout the mid to lower cervical spine with anterior osteophytes and bilateral foraminal stenosis throughout the exam. Soft tissues: Soft tissue air noted tracking along the fascial planes particularly in the left neck is likely postoperative. Additionally, there is air in the intracanalicular extradural space, likely epidural space, throughout the cervical spine, but particularly at the C2 level where there is some mass effect. No intrathecal air. Incidental metallic device in the right external auditory canal, likely hearing aid. IMPRESSION: 1. Scattered epidural air in the cervical spine is likely a sequelae of recent surgery. No intrathecal or intracranial air. There is associated air in the fascial planes of the left neck as well. 2. Multilevel degenerative disease and arthropathy, [id number] Note: Critical results were discussed with Dr. Leon at 12:15 AM [place] time on 09/14/21 Approved by: Brayan Allen M.D. on 09/14/2021 at 0:24
[2021-09-14] MEDS: MORPHINE 4 MG/ML INJ IV (00:12)
[2021-09-14] MEDS: LORazepam 2 MG/ML INJ 1 MG IV (00:13)
[2021-09-14 00:54] LABS: INR 1.1 (0.9-1.3); Prothrombin Time 12.1 SECONDS (10.1-12.7)
[2021-09-14 00:57] LABS: PTT Partial Thromboplastin Tim 29 SECONDS (26.4-36.2)
[2021-09-14 00:59] LABS: Creatine Kinase 998 U/L (55-170)
[2021-09-14 01:01] LABS: BUN Creatinine Ratio 21.4 (6-22); Blood Urea Nitrogen 15 mg/dL (9-20); Calcium 9.7 mg/dL (8.4-10.2); Carbon Dioxide 23 mmol/L (22-32); Chloride 105 mmol/L (98-107); Estimated Glomerular Filt Rate > 60.0 mL/min (>60); Glucose 161 mg/dL (80-110); HEMOLYSIS < 15 (0-50); Potassium 3.9 mmol/L (3.4-5.1); Sodium 138 mmol/L (137-145)
[2021-09-14] MEDS: HYDROMORPHONE 1 MG INJ IV ×2 (01:05→02:55)
[2021-09-14] MEDS: METOPROLOL TARTRATE 5 MG/5 ML INJ IV ×3 (01:05→01:35)
[2021-09-14 01:08] LABS: Add Manual Diff / Slide Review NO; Basophils Absolute Auto 0 /uL (0-100); Basophils Percent Auto 0.2 % (0-2); Eosinophils Absolute Auto 0 /uL (0-450); Eosinophils Percent Auto 0.1 % (2-4); Hematocrit 42.3 % (41-53); Hemoglobin 14.9 g/dL (13.5-17.5); Lymphocytes Absolute Auto 500 /uL (1100-4500); Lymphocytes Percent Auto 5.1 % (25-40); Mean Corpuscular HGB Conc 35.3 % (30-36); Mean Corpuscular Hemoglobin 31.1 PG (26-34); Mean Corpuscular Volume 88.1 fL (80-100); Monocytes Absolute Auto 200 /uL (0-900); Monocytes Percent Auto 2.6 % (3-14); Neutrophils Absolute Auto 8400 /uL (1500-7000); Platelet Count 164 X10^3/uL (150-400); Red Cell Distribution Width 13.4 % (11.6-14.8); White Blood Cell Count 9.1 X10^3/uL (4.5-11.0)
[2021-09-14 01:12] LABS: Troponin I < 0.012 ng/mL (0.01-0.034)
[2021-09-14 01:15] LABS: CKMB % Relative Index 1.9 % (1.5-5.0)
--- NOTE | 2021-09-14 01:53 | DI.CT.S_ITS ---
PROCEDURE: CT CHEST ABD PEL W CON INDICATIONS: post laminectomy today, neck pain. air on cervical CT TECHNIQUE: After the administration of intravenous contrast, axial sections acquired from the supraclavicular neck to the pubic symphysis. Coronal and sagittal reformats were performed. For radiation dose reduction, the following was used: automated exposure control, adjustment of mA and/or kV according to patient size. COMPARISON: [facility], MR, MR LUMBAR SPINE WITHOUT CONTRAST, 07/16/2021, 17:12. [facility], CT, CT CERVICAL SPINE WO CON, 09/14/2021, 0:10. FINDINGS: Image quality: There is streak artifact seen through the upper abdomen. CHEST: Lower Neck: No enlarged lymph nodes. Thyroid: Within normal limits. Axillae: No enlarged lymph nodes. Chest Wall: Unremarkable. Lungs and Airways: No consolidation or suspicious nodules. Pleura: No pneumothorax or pleural effusions. Heart: Heart size is mildly enlarged. No pericardial effusion. Prominent coronary artery calcification is seen. Thoracic Vessels: The aorta and pulmonary arteries demonstrate normal size. Mediastinum and Caryn: No enlarged lymph nodes. Esophagus: No wall thickening. No hiatal hernia. ABDOMEN: Liver: Unremarkable. Gallbladder: Unremarkable. Biliary ducts: Unremarkable. Pancreas: Unremarkable. Spleen: Unremarkable. Adrenal Glands: Unremarkable. Kidneys and Ureters: There is a 3 mm nonobstructing kidney stone seen on the left inferiorly. The kidneys demonstrate normal size, without hydronephrosis. Stomach and Bowel: Stomach, small bowel loops, and colon are unremarkable. An apparent appendectomy stump can be seen. Peritoneum: No abnormal intraperitoneal fluid. No free air. Ventral Wall: No hernia. Abdominal Nodes: No retroperitoneal or mesenteric adenopathy by size criteria. Vessels: Aorta and inferior vena cava are normal in size. PELVIS: Pelvic Organs: Unremarkable. Bladder: The urinary bladder is prominent in size, yet does not appear frankly abnormally distended. No bladder wall thickening is seen. Pelvic Nodes: No enlarged lymph nodes. Miscellaneous: No inguinal hernias are seen. Bones: Laminectomy change can be seen involving the L2 and L3 levels. At these levels, there is high-density material seen along the posterior aspect of the spinal canal, with poorly defined margins. There are numerous bubbles of gas seen within the spine, including apparent intrathecal gas, with bubbles seen medially adjacent to the thoracic spinal cord. Numerous bubbles of gas can be seen within the paraspinous regions, particularly involving the lumbar spine. Degenerative changes are seen throughout. Several levels of vacuum disc phenomenon can be seen. IMPRESSION: Postoperative change with recent L2 and L3 laminectomy, with numerous bubbles of gas seen within the spinal canal, with bubbles seen immediately adjacent to the spinal cord. Soft tissue gas can also be seen. A portion of the gas may be intravenous. Likely postoperative blood can be seen along the posterior aspect of the spinal canal at L2 and L3. If clinically appropriate, a follow-up MRI could be considered for further evaluation (assuming that there is no contraindication). Incidental note is made of: Mild cardiomegaly Prominent coronary artery calcification Nonobstructing left-sided kidney stone Apparent appendectomy. Note: No significant discrepancy from the preliminary report. Dictated by: Asher Prakash M.D. on 09/14/2021 at 7:22 Approved by: Asher Prakash M.D. on 09/14/2021 at 7:33
[2021-09-14] MEDS: OXYCODONE IR 5 MG TABLET 10 MG PO (04:18)
== END 2021-09-14 07:04 | disposition home or self-care (01) ==
PROVIDERS: Emergency Provider Emergency Medicine; PCP Student in an Organized Health Care Education/Training Program
DX: L76.32 Postprocedural hematoma of skin and subcutaneous tissue following other procedure (principal); R07.9 Chest pain, unspecified; Z98.890 Other specified postprocedural states; R11.0 Nausea; M54.2 Cervicalgia
CPT/HCPCS: 71260; 72125; 74177; 80048; 82550; 82553; 84484; 85025; 85610; 85730; 93005; 93010; 99284; J1170; J2060; J2270; Q9967

== ENCOUNTER → 2022-07-16 09:42 | Outpatient (CLI) | payer MEDICARE, OTHER, SELFPAY ==
--- NOTE | 2022-07-16 | DI.NM.S_ITS ---
PROCEDURE: NM MAURICIO PERF SPECT R&S PHARM Rest and pharmacological stress myocardial perfusion SPECT with gated imaging and ejection fraction RADIOPHARMACEUTICAL: 12.2 mCi Tc-99m tetrafosmin IV at rest and 25.4 mCi Tc-99m tetrafosmin IV at peak effect of pharmacological stress. [id number] was performed. INDICATIONS: Atherosclerotic heart disease TECHNIQUE: Radiopharmaceutical was injected at peak stress test, and also at rest. SPECT images were obtained. SPECT myocardial perfusion images were displayed in short axis, horizontal long axis, and vertical long axis views. Gated images were reviewed using Real [employer] software. COMPARISON: None. CARDIAC STRESS: A pharmacologic stress test was performed under the supervision of an attending staff, using an infusion of lexiscan 0.4mg IV X1. Hemodynamic data: There is normal blood pressure and heart rate response to pharmacologic stress. Symptoms: The patient denied anginal chest pain. Aminophylline: none EKG: Atrial fibrillation present throughout the study. No diagnostic changes of ischemia; occasional PVCs during the study. FINDINGS: Raw data: There is good myocardial uptake of radiotracer. No significant motion artifacts. Left ventricle function: Gated images demonstrate normal left ventricular wall thickening. No segmental wall motion abnormalities. No transient ischemic dilation; TID is 0.75 (normal less than 1.3). Left ventricle stress end diastolic volume is 125 mL. Left ventricle stress ejection fraction is 68%; normal range is above 45%. Myocardial perfusion: There is normal distribution of activity in the right and left ventricular myocardium on stress prone imaging. No fixed or reversible perfusion defects. IMPRESSION: Low risk, normal pharmaceutical nuclear stress test 1) No perfusion evidence of ischemia or infarction. 2) Normal left ventricular size, wall motion, and systolic function (EF post stress 68%). 3) No angina during the study. 4) No ST changes with lexiscan. 5) Compared to the nuc stress 03/14/2011, no significant change. Dictated by: Rosalina Flores MD on 07/17/2022 at 13:16 Approved by: Rosalina Flores MD on 07/17/2022 at 13:18
--- NOTE | 2022-07-16 | DI.ECHO.S_ITS ---
[facility] +---------+ : : [address] : : : : [id number] : : : : Phone: [phone] Echocardiogram Report + + :Name: KARLOS BOYER Study Date: 07/16/2022 Height: 75 in : :[facility] ReadingLocation: Weight: 265 lb : : Gender: Male BSA: 2.5 m2 : :: 1950 Age: 71 yrs BP: 160/101 mmHg: :Reason For Study: ATHEROSCLEROTIC HEART DISEASE : :Ordering Physician: RACHAEL, : :BERTRAND Performed By: Nery Siu : :Referring: BERTRAND CANO : + + Interpretation Summary The left ventricle is normal in size. There is mild concentric left ventricular hypertrophy. Left ventricular ejection fraction is estimated to be 60 +/- 5%. Previous LVEF 60 to 65%. The right ventricle is mildly dilated. The right ventricular systolic function is normal. There is mild to moderate tricuspid regurgitation. The right ventricular systolic pressure is estimated to be at least 46 mmHg based on an estimated right atrial pressure of 8 mm Hg. Previously mild TR and pulmonary artery systolic pressure about 30-35 mmHg. Blood pressure: 160/101 mmHg. Procedure: A two-dimensional transthoracic echocardiogram with color flow and Doppler was performed. The study quality was technically adequate. Comparison is made with the echocardiogram of 03/14/2011. The patient was in atrial fibrillation with controlled ventricular rate during the exam. Left Ventricle: The left ventricle is normal in size. There is mild concentric left ventricular hypertrophy. There is no thrombus. Left ventricular ejection fraction is estimated to be 60 +/- 5%. There are no focal wall motion abnormalities. E/E' med: 8.8. Right Ventricle: The right ventricle is mildly dilated. The right ventricular systolic function is normal. Atria: The left atrium is severely dilated. The left atrium has significantly increased in size since the prior echo exam. The right atrium is mildly dilated. There is no Doppler evidence for an interatrial shunt. Mitral Valve: There is mild mitral annular calcification. The mitral valve leaflets are mildly calcified. There is mild mitral regurgitation. Compared to the prior echo study, there has been no change in the severity of mitral regurgitation. Aortic Valve: The aortic valve is trileaflet. The aortic valve is mildly calcified. There is minimally reduced leaflet mobility. There is no aortic valve stenosis. No aortic regurgitation is present. Tricuspid Valve: The tricuspid valve is normal. There is mild to moderate tricuspid regurgitation. The right ventricular systolic pressure is estimated to be at least 46 mmHg based on an estimated right atrial pressure of 8 mm Hg. Pulmonic Valve: The pulmonic valve leaflets are thin and pliable; valve motion is normal. There is no pulmonic valvular regurgitation. Great Vessels: The aortic root is normal size. The ascending aorta is mildly enlarged. The IVC is dilated (diameter is greater than 2.1 cm) yet it collapses greater than 50% with a sniff. This suggests a right atrial pressure of 8 mm Hg. Pericardium/ Pleura There is no pericardial effusion. There is no pleural effusion. MMode/2D Measurements & Calculations LVIDd: 5.5 cm LVOT diam: 2.6 cm LVIDs: 3.5 cm Ao root diam: 4.0 cm FS: 36.1 % asc Aorta Diam: 4.1 cm IVSd: 1.3 cm Ao Arch Diam (Prox Trans): 3.4 cm LVPWd: 1.3 cm LV gusman. diameter/BSA (cm/m^2): 2.2 LV sys. diameter/BSA (cm/m^2): 1.4 LA A2 area: 30.6 cm2 RA long axis: 6.8 cm LA A4 area: 36.7 cm2 RA area: 27.0 cm2 LA length (vol): 7.3 cm RA vol: 91.7 ml LA vol: 130.7 ml RA : 37.1 ml/m2 LA vol index: 52.9 ml/m2 IVC diam: 3.1 cm RVD1 (basal): 3.9 cm RVD2 (mid): 4.2 cm TAPSE: 2.0 cm Doppler Measurements & Calculations Ao V2 max: 137.1 cm/sec LVOT Max Ward: 64.5 cm/sec Ao V2 mean: 96.6 cm/sec LV V1 max P.7 mmHg Ao max P.5 mmHg LV V1 VTI: 13.9 cm Ao mean P.1 mmHg MATTHIAS(I,D): 2.5 cm2 Ao V2 VTI: 28.7 cm MATTHIAS(V,D): 2.5 cm2 sev ratio: 0.49 MATTHIAS indexed to BSA (cm^2/m^2): 1.0 MV E max ward: 91.6 cm/sec TR max ward: 309.0 cm/sec MV A max ward: 3.1 cm/sec TR max P.2 mmHg MV E/A: 29.8 PA V2 max: 96.5 cm/sec Med Peak E' Ward: 10.5 cm/sec PA V2 mean: 54.4 cm/sec E/E' med: 8.8 PA mean P.5 mmHg Lat Peak E' Ward: 12.9 cm/sec PA pr(Accel): 32.8 mmHg E/E' lat: 7.1 E/e' average: 7.9 MV dec time: 0.22 sec SV(LVOT): 72.6 ml Reading Physician:02:28 PM
[2022-07-16 15:47] LABS: COVID19 -Nasal RAPID Negative (Negative)
== END ==
PROVIDERS: PCP Student in an Organized Health Care Education/Training Program; Referring Provider Internal Medicine Cardiovascular Disease; Visit Provider Internal Medicine Cardiovascular Disease
DX: I25.10 Atherosclerotic heart disease of native coronary artery without angina pectoris (principal); Z20.822 Contact with and (suspected) exposure to COVID-19
CPT/HCPCS: 78452; 87635; 93017; 93306; C9803; A9502; J2785

== ENCOUNTER → 2022-11-17 16:31 | Outpatient (CLI) | payer MEDICARE, OTHER, SELFPAY ==
--- NOTE | 2022-11-17 16:33 | DI.RAD.S_ITS ---
PROCEDURE: XR CHEST 2V INDICATIONS: cough TECHNIQUE: 2 views of the chest were acquired. COMPARISON: None. FINDINGS: Surgical changes and devices: None. Lungs and pleura: Lungs are clear. No pleural effusions or pneumothorax. Mediastinum: Mediastinal contours are normal. Heart size is normal. Bones and chest wall: No suspicious bony abnormalities. Soft tissues appear unremarkable. IMPRESSION: No acute cardiopulmonary abnormality. Approved by: Norris Chapin M.D. on 11/17/2022 at 21:09
== END ==
PROVIDERS: PCP Family Medicine; Referring Provider Internal Medicine; Visit Provider Internal Medicine
DX: R05.9 Cough, unspecified (principal)
CPT/HCPCS: 71046

== ENCOUNTER → 2023-06-05 10:20 | Outpatient (CLI) | payer MEDICARE, OTHER, SELFPAY ==
[2023-06-05 12:15] LABS: BUN Creatinine Ratio 23.5 (6-22); Blood Urea Nitrogen 20 mg/dL (9-20); Calcium 9.3 mg/dL (8.4-10.2); Carbon Dioxide 26 mmol/L (22-32); Chloride 106 mmol/L (98-107); Estimated Glomerular Filt Rate > 60 mL/min (>60); Glucose 93 mg/dL (80-110); HEMOLYSIS < 15 (0-50); Potassium 4.2 mmol/L (3.4-5.1); Sodium 139 mmol/L (137-145)
== END ==
PROVIDERS: PCP Family Medicine; Referring Provider Internal Medicine Cardiovascular Disease; Visit Provider Internal Medicine Cardiovascular Disease
DX: I10 Essential (primary) hypertension (principal)
CPT/HCPCS: 36415; 80048

== ENCOUNTER → 2023-10-30 07:19 | Outpatient (CLI) | payer MEDICARE, OTHER, SELFPAY ==
[2023-10-30 08:33] LABS: Cholesterol 128 mg/dL (140-199); HDL Cholesterol 59 mg/dL (40-60); LDL Cholesterol Calculated 58 mg/dL (<100); Triglycerides 55 mg/dL (35-150)
== END ==
PROVIDERS: PCP Family Medicine; Referring Provider Internal Medicine Cardiovascular Disease; Visit Provider Internal Medicine Cardiovascular Disease
DX: E78.5 Hyperlipidemia, unspecified (principal)
CPT/HCPCS: 36415; 80061

== ENCOUNTER → 2024-08-03 10:48 | Outpatient (CLI) | payer MEDICARE, OTHER, SELFPAY | PROVIDERS: PCP Family Medicine; Visit Provider Family Medicine | DX: R31.9 Hematuria, unspecified (principal) | CPT/HCPCS: 87086 ==

== ENCOUNTER 2024-08-13 15:24 | Emergency (ER) | payer MEDICARE, OTHER, SELFPAY ==
[2024-08-13 15:26] VITALS: BP 121/76; PULSE 89; RESP 16; TEMP 36.5; O2SAT 97; BMI 33.7
[2024-08-13 15:53] LABS: Bacteria Urine None Seen; Culture Indicated Urine Cult Not Indicated; RBC Urine >100/HPF (0-5/HPF); Squamous Epithelial Cell Urine 0-1 /HPF (0-5/HPF); Urine Volume 10mL (spun); WBC Urine 0-1/HPF (0-5/HPF)
[2024-08-13 17:01] LABS: Add Manual Diff / Slide Review NO; Basophils Absolute Auto 0 /uL (0-100); Basophils Percent Auto 0.6 % (0-2); Eosinophils Absolute Auto 100 /uL (0-450); Hemoglobin 12.1 g/dL (13.5-17.5); Lymphocytes Absolute Auto 1500 /uL (1100-4500); Lymphocytes Percent Auto 24.4 % (25-40); Mean Corpuscular HGB Conc 34.6 % (30-36); Mean Corpuscular Hemoglobin 29.2 PG (26-34); Mean Corpuscular Volume 84.4 fL (80-100); Monocytes Absolute Auto 500 /uL (0-900); Monocytes Percent Auto 7.7 % (3-14); Neutrophils Absolute Auto 4000 /uL (1500-7000); Neutrophils Percent Auto 65.3 % (50-75); Platelet Count 275 X10^3/uL (150-400); Red Blood Cell Count 4.15 X10^6/uL (4.5-5.9); Red Cell Distribution Width 13.2 % (11.6-14.8); White Blood Cell Count 6.1 X10^3/uL (4.5-11.0)
[2024-08-13 17:05] LABS: INR 2.1 (0.9-1.3)
[2024-08-13 17:08] LABS: Alanine Aminotransferase 33 IU/L (<50); Albumin 3.9 g/dL (3.5-5.0); Albumin Globulin Ratio 1.1 (1.0-2.8); Alkaline Phosphatase 125 U/L (38-126); Aspartate Aminotransferase 35 IU/L (17-59); BUN Creatinine Ratio 17.3 (6-22); Bilirubin Total 0.8 mg/dL (0.2-1.3); Blood Urea Nitrogen 13 mg/dL (9-20); Calcium 9.9 mg/dL (8.4-10.2); Carbon Dioxide 25 mmol/L (22-32); Chloride 102 mmol/L (98-107); Estimated Glomerular Filt Rate > 60 mL/min (>60); Globulin 3.5 g/dL (1.7-4.1); Glucose 111 mg/dL (80-110); HEMOLYSIS < 15 (0-50); PTT Partial Thromboplastin Tim 45 SECONDS (25.1-36.5); Potassium 3.9 mmol/L (3.4-5.1); Sodium 136 mmol/L (137-145); Total Protein 7.4 g/dL (6.3-8.2)
[2024-08-13 17:09] LABS: Lactate (Lactic Acid) 0.9 mmol/L (0.7-2.1)
--- NOTE | 2024-08-13 17:25 | ED_ITS ---
HPI - Male Genitourinary <Dandre Ratliff PA-C - Last Filed: 08/13/24 17:38> General Chief complaint: Urogenital-Male Stated complaint: blood in urine t-7 Time Seen by Provider: 08/13/24 16:18 Source: patient Mode of arrival: Ambulatory History of Present Illness HPI Narrative: This patient is a 73-year-old male that presents today for hematuria that has been intermittently present for the last 10 days. He recently had hip related surgery and was placed on Celebrex while taking Xarelto. After the 1st episode of hematuria, his PCP thought that the combination of the 2 medications cause the hematuria. The patient has since stopped Celebrex but the hematuria returned yesterday. He denies night sweats, fever, chills, back pain, flank pain, abdominal pain, testicular pain or increased urinary frequency. He also denies saddle anesthesia or bowel/bladder incontinence. The patient also denies nausea, vomiting, chest pain or shortness of breath. He is having no difficulty with urination. Related Data Home Medications Medication Instructions Recorded Confirmed methylcellulose (laxative) 500 mg 500 mg PO DAILY 09/06/19 08/03/24 tablet (Citrucel) aspirin 81 mg tablet,delayed 81 mg PO DAILY 09/05/22 08/03/24 release (Adult Aspirin Regimen) atorvastatin 80 mg tablet 80 mg PO DAILY 09/05/22 08/03/24 lisinopril 40 mg tablet 40 mg PO DAILY 09/05/22 08/03/24 metoprolol succinate 50 mg 50 mg PO DAILY 09/05/22 08/03/24 tablet,extended release 24 hr nitroglycerin 0.4 mg sublingual 0.4 mg sublingual Q5M PRN 09/05/22 08/03/24 tablet (Nitrostat) rivaroxaban 20 mg tablet (Xarelto) 20 mg PO QPM 09/05/22 08/03/24 terazosin 5 mg capsule 5 mg PO DAILY 09/05/22 08/03/24 chlorthalidone 25 mg tablet 25 mg PO DAILY 02/02/24 08/03/24 isosorbide mononitrate 30 mg 30 mg PO DAILY 02/02/24 08/03/24 tablet,extended release 24 hr potassium chloride 20 mEq 20 meq PO DAILY 02/02/24 08/03/24 tablet,extended release Previous Rx's Medication Instructions Recorded albuterol sulfate 90 mcg/actuation See Rx Instructions .Route 04/28/24 aerosol inhaler (Ventolin HFA) .COMPLEX #54 grams finasteride 1 mg tablet 1 mg PO DAILY #90 tabs 05/19/24 Allergies Allergy/AdvReac Type Severity Reaction Status Date / Time No Known Drug Allergies Allergy Verified 08/13/24 15:26 Review of Systems <Dandre Ratliff PA-C - Last Filed: 08/13/24 17:38> Review of Systems Narrative: General: See HPI : See HPI All other review of systems have been reviewed and are ultimately negative unless otherwise stated in the HPI Patient History <Dandre Ratliff PA-C - Last Filed: 08/13/24 17:38> Medical History Post-operative pain Medication reaction Hematuria Reactive airway disease Sick sinus syndrome Coronary artery disease Mixed hyperlipidemia RENATE on CPAP Lower urinary tract symptoms (LUTS) HTN (hypertension) Atrial fibrillation Vision disorder Shoulder pain (~2009) Chronic back pain (~1999) Mumps (~1959) Tinnitus Coronary artery disease Hearing loss (~1999) Disease of spine Measles Chicken pox Sleep apnea (~2009) HTN (hypertension) Chest pain Asthma (~1994) Afib (~2006) Surgical History S/P laminectomy (~09/2021) H/O cardiac radiofrequency ablation (~2007) H/O heart artery stent (~2009) History of colonoscopy (~2019) Anesthesia History of knee replacement (~12/24/20) History of laminectomy (~09/13/21) History of umbilical hernia repair (~2020) H/O cardiac radiofrequency ablation Hx of heart artery stent (~12/2009) Family History Father Cancer Mother History of heart disease Hyperlipidemia Hypertension Sister Cancer Father Cancer Social History household members: spouse Smoking Status: Former smoker alcohol intake: current Smoking Status: Former smoker alcohol intake frequency: a few times a week Substance Use Type: does not use Exam <REGGIE Campos Last Filed: 08/13/24 17:38> Initial Vital Signs Initial Vital Signs: Vital Signs Temperature 97.7 F 08/13/24 15:26 Pulse Rate 89 08/13/24 15:26 Respiratory Rate 16 08/13/24 15:26 Blood Pressure 121/76 08/13/24 15:26 Pulse Oximetry 97 08/13/24 15:26 Oxygen Delivery Method Room Air 08/13/24 15:26 Const General: cooperative, healthy appearing and comfortable [facility] Head: normal to inspection, normocephalic and atraumatic Ears: hearing grossly normal bilaterally and external ears normal Nose: external nose normal and nares normal Face and sinus: normal facial exam Mouth: oral mucosae normal Eyes General: Yes appearance normal, both eyes and all related structures Neck Neck: normal visual inspection, full ROM and no meningeal signs Resp Effort & Inspection: normal respiratory effort and able to speak in complete sentences Auscultation: clear to auscultation bilaterally Cardio Rate: regular rate Rhythm: regular rhythm Heart Sounds: S1 normal and S2 normal GI Palpation: soft and no hepatosplenomegaly Other: No CVA tenderness bilaterally Back/Spine/Pelvis Back: normal to inspection Skin General: no rashes or lesions noted, elasticity normal and turgor normal Neuro General: patient alert, patient awake and patient oriented x3 Extrem General: normal to inspection, full ROM and capillary refill normal Psych Appearance: grossly normal and well kempt <Ana Gorman DO - Last Filed: 08/14/24 07:58> Initial Vital Signs Initial Vital Signs: Vital Signs Temperature 97.7 F 08/13/24 15:26 Pulse Rate 89 08/13/24 15:26 Respiratory Rate 16 08/13/24 15:26 Blood Pressure 121/76 08/13/24 15:26 Pulse Oximetry 97 08/13/24 15:26 Oxygen Delivery Method Room Air 08/13/24 15:26 Course <REGGIE Campos Last Filed: 08/13/24 17:38> Course Course Narrative: This patient was seen and examined. Labs ordered and a urinalysis as well. This revealed hematuria without WBCs, nitrates, protein or glucose once this was centrifuged in the lab. Labs were ordered which revealed an elevated PT/INR which is likely secondary to the patient's concomitant use of Celebrex and Xarelto. He has been advised to continue to avoid Celebrex and discontinued Xarelto temporarily for the next 3-5 days depending on guidance from his PCP and/or workers compensation legal secretary. I do not believe this is an acute kidney injury. This could be renal cancer but the patient denies weight loss/weight gain, decreased appetite. However, if the hematuria continues after stopping Xarelto for the next 5 days, an outpatient CT scan would likely be the next step in treatment. Patient understands the treatment plan. There are no additional questions at the time of discharge. I do not believe this is a UTI, pyelonephritis or nephrolithiasis since the patient is not experiencing any flank pain. He appears clinically stable for outpatient follow up. As always, patient was advised to return here immediately if worse. Orders Ordered: ED Orders 08/13/24 15:41 Urine Microscopic Stat 08/13/24 16:36 CBC Auto Diff [Complete Blood Count AUTO DIFF] Stat CMP [Comprehensive Metabolic Panel] Stat Lactate (Lactic Acid) Stat PT [Prothrombin Time INR] Stat PTT Partial Thromboplastin Tae Stat Vital Signs Vital signs: Vital Signs - 8 hr 08/13/24 15:26 Temperature 97.7 F Pulse Rate 89 Respiratory Rate 16 Blood Pressure 121/76 Pulse Oximetry 97 Oxygen Delivery Method Room Air <Ana Gorman DO - Last Filed: 08/14/24 07:58> Orders Ordered: ED Orders 08/13/24 15:41 Urine Microscopic Stat 08/13/24 16:36 CBC Auto Diff [Complete Blood Count AUTO DIFF] Stat CMP [Comprehensive Metabolic Panel] Stat Lactate (Lactic Acid) Stat PT [Prothrombin Time INR] Stat PTT Partial Thromboplastin Tae Stat Vital Signs Vital signs: Vital Signs - 8 hr 08/13/24 15:26 Temperature 97.7 F Pulse Rate 89 Respiratory Rate 16 Blood Pressure 121/76 Pulse Oximetry 97 Oxygen Delivery Method Room Air MDM - Male Genitourinary <Dandre Ratliff PA-C - Last Filed: 08/13/24 17:38> Differential Diagnosis Differential diagnosis: Likely urinary tract infection, urethritis, prostatitis, acute retention of urine and other (Acute kidney injury, cancer, pyelonephritis, nephrolithiasis as well as others) Lab Data 08/13/24 16:50 08/13/24 16:50 Labs: Lab Results 08/13/24 08/13/24 Range/Units 15:41 16:50 WBC 6.1 (4.5-11.0) X10^3/uL RBC 4.15 L (4.5-5.9) X10^6/uL Hgb 12.1 L (13.5-17.5) g/dL Hct 35.0 L (41-53) % MCV 84.4 (80-100) fL MCH 29.2 (26-34) PG MCHC 34.6 (30-36) % RDW 13.2 (11.6-14.8) % Plt Count 275 (150-400) X10^3/uL Neut % (Auto) 65.3 (50-75) % Lymph % (Auto) 24.4 L (25-40) % [facility] % (Auto) 7.7 (3-14) % Eos % (Auto) 2.0 (2-4) % Baso % (Auto) 0.6 (0-2) % Neut # (Auto) 4000 (9696-3596) /uL Lymph # (Auto) 1500 (6468-5619) /uL [facility] # (Auto) 500 (0-900) /uL Eos # (Auto) 100 (0-450) /uL Baso # (Auto) 0 (0-100) /uL PT 24.0 H (9.4-12.5) SECONDS INR 2.1 H (0.9-1.3) APTT 45 H (25.1-36.5) SECONDS Sodium 136 L (137-145) mmol/L Potassium 3.9 (3.4-5.1) mmol/L Chloride 102 (98-107) mmol/L Carbon Dioxide 25 (22-32) mmol/L BUN 13 (9-20) mg/dL Creatinine 0.75 (0.66-1.25) mg/dL Estimated GFR > 60 (>60) mL/min BUN/Creatinine Ratio 17.3 (6-22) Glucose 111 H (80-110) mg/dL Lactate 0.9 (0.7-2.1) mmol/L Calcium 9.9 (8.4-10.2) mg/dL Total Bilirubin 0.8 (0.2-1.3) mg/dL AST 35 (17-59) IU/L ALT 33 (<50) IU/L Alkaline Phosphatase 125 (38-126) U/L Total Protein 7.4 (6.3-8.2) g/dL Albumin 3.9 (3.5-5.0) g/dL Globulin 3.5 (1.7-4.1) g/dL Albumin/Globulin Ratio 1.1 (1.0-2.8) Urine RBC >100/hpf H (0-5/HPF) Urine WBC 0-1/hpf (0-5/HPF) Ur Squamous Epith Cells 0-1 /hpf (0-5/HPF) Urine Bacteria None seen (None) Ur Culture Indicated? Cult not indicated Vol Urine Centrifuged 10ml (spun) Urine Dip Bedside Urine Glucose Negative Bedside Urine Bilirubin - Negative Bedside Urine Ketone - Negative Urine Specific Deridder 1.020 Bedside Urine Occult Blood +++ Bedside Urine pH 6.0 Bedside Urine Protein +/- 15 Bedside Urine Urobilinogen - Negative Bedside Urine Nitrite - Negative Bedside Urine Leukocytes + 70 Esterase MDM Narrative Medical decision making narrative: See above. <Ana Gorman, DO - Last Filed: 08/14/24 07:58> Lab Data Labs: Lab Results 08/13/24 08/13/24 Range/Units 15:41 16:50 WBC 6.1 (4.5-11.0) X10^3/uL RBC 4.15 L (4.5-5.9) X10^6/uL Hgb 12.1 L (13.5-17.5) g/dL Hct 35.0 L (41-53) % MCV 84.4 (80-100) fL MCH 29.2 (26-34) PG MCHC 34.6 (30-36) % RDW 13.2 (11.6-14.8) % Plt Count 275 (150-400) X10^3/uL Neut % (Auto) 65.3 (50-75) % Lymph % (Auto) 24.4 L (25-40) % [facility] % (Auto) 7.7 (3-14) % Eos % (Auto) 2.0 (2-4) % Baso % (Auto) 0.6 (0-2) % Neut # (Auto) 4000 (8188-4466) /uL Lymph # (Auto) 1500 (0590-7111) /uL [facility] # (Auto) 500 (0-900) /uL Eos # (Auto) 100 (0-450) /uL Baso # (Auto) 0 (0-100) /uL PT 24.0 H (9.4-12.5) SECONDS INR 2.1 H (0.9-1.3) APTT 45 H (25.1-36.5) SECONDS Sodium 136 L (137-145) mmol/L Potassium 3.9 (3.4-5.1) mmol/L Chloride 102 (98-107) mmol/L Carbon Dioxide 25 (22-32) mmol/L BUN 13 (9-20) mg/dL Creatinine 0.75 (0.66-1.25) mg/dL Estimated GFR > 60 (>60) mL/min BUN/Creatinine Ratio 17.3 (6-22) Glucose 111 H (80-110) mg/dL Lactate 0.9 (0.7-2.1) mmol/L Calcium 9.9 (8.4-10.2) mg/dL Total Bilirubin 0.8 (0.2-1.3) mg/dL AST 35 (17-59) IU/L ALT 33 (<50) IU/L Alkaline Phosphatase 125 (38-126) U/L Total Protein 7.4 (6.3-8.2) g/dL Albumin 3.9 (3.5-5.0) g/dL Globulin 3.5 (1.7-4.1) g/dL Albumin/Globulin Ratio 1.1 (1.0-2.8) Urine RBC >100/hpf H (0-5/HPF) Urine WBC 0-1/hpf (0-5/HPF) Ur Squamous Epith Cells 0-1 /hpf (0-5/HPF) Urine Bacteria None seen (None) Ur Culture Indicated? Cult not indicated Vol Urine Centrifuged 10ml (spun) Urine Dip Bedside Urine Glucose Negative Bedside Urine Bilirubin - Negative Bedside Urine Ketone - Negative Urine Specific Deridder 1.020 Bedside Urine Occult Blood +++ Bedside Urine pH 6.0 Bedside Urine Protein +/- 15 Bedside Urine Urobilinogen - Negative Bedside Urine Nitrite - Negative Bedside Urine Leukocytes + 70 Esterase Discharge Plan Departure Patient Disposition: Home Clinical Impression: Hypercoagulable state Hematuria Qualifiers: Hematuria type: idiopathic Instructions: DI for Hematuria Activity Restrictions/Additional Instructions: Discontinue your Xarelto for the next 5 days starting tomorrow Increase clear fluid intake Follow up your PCP in 2-3 days Return here immediately if worse or for any new, emergent concerns Your PT/INR today was noted to be 2.1 Your PT was 24.0 Prescriptions: No Action albuterol sulfate [Ventolin HFA] 90 mcg/actuation HFA aerosol inhaler See Rx Instructions .ROUTE .COMPLEX Qty: 54 12RF Dose Instruction: Inhale 1-2 puffs using inhaler every four hours as needed Rx Instructions: Inhale 1-2 puffs using inhaler every four hours as needed finasteride 1 mg tablet 1 mg PO DAILY Qty: 90 0RF isosorbide mononitrate 30 mg tablet extended release 24 hr 30 mg PO DAILY potassium chloride 20 mEq tablet extended release 20 meq PO DAILY chlorthalidone 25 mg tablet 25 mg PO DAILY terazosin 5 mg capsule 5 mg PO DAILY atorvastatin 80 mg tablet 80 mg PO DAILY metoprolol succinate 50 mg tablet extended release 24 hr 50 mg PO DAILY Xarelto 20 mg tablet 20 mg PO QPM Rx Instructions: must administer with evening meal lisinopril 40 mg tablet 40 mg PO DAILY nitroglycerin [Nitrostat] 0.4 mg tablet, sublingual 0.4 mg sublingual Q5M PRN Rx Instructions: do not exceed 3 doses per episode aspirin [Adult Aspirin Regimen] 81 mg tablet,delayed release (DR/EC) 81 mg PO DAILY Citrucel 500 mg tablet 500 mg PO DAILY Referrals: Azael Morrell DO [Primary Care Provider] - Stand Alone Forms: Patient Portal/API ED Sign-out <Ana Gorman DO - Last Filed: 08/14/24 07:58> Cosign ED Attending Patrick Attestation: I was available for consultation.
[2024-08-13 17:39] VITALS: BP 122/77; PULSE 76; RESP 18; O2SAT 96
== END 2024-08-13 17:39 | disposition home or self-care (01) ==
PROVIDERS: Emergency Medicine; Emergency Provider Physician Assistant; PCP Family Medicine
DX: R31.9 Hematuria, unspecified (principal); D68.59 Other primary thrombophilia; Z79.899 Other long term (current) drug therapy
CPT/HCPCS: 36415; 80053; 81003; 81015; 83605; 85025; 85610; 85730; 99283

== ENCOUNTER → 2024-08-24 07:51 | Outpatient (CLI) | payer MEDICARE, OTHER, SELFPAY ==
--- NOTE | 2024-08-24 07:53 | DI.CT.S_ITS ---
PROCEDURE: CT IVP A/P W/WO INDICATIONS: 73 y/o M w/ gross hematuria, eval upper tracts. TECHNIQUE: Optional 5 mm thick noncontrast images acquired from the diaphragm to the symphysis pubis. After the administration of intravenous contrast, 5 mm thick images acquired from the diaphragm to the symphysis pubis after a 10-minute delay. 2 mm thick coronal and sagittal reformats were then performed of the kidneys and ureters. For radiation dose reduction, the following was used: automated exposure control, adjustment of mA and/or kV according to patient size. COMPARISON: [facility], CT, CT CHEST ABD PEL W CON, 09/14/2021, 2:15. FINDINGS: Image quality: Diagnostic. Kidneys and Ureters: Both kidneys are normal in size. No significant hydronephrosis. Obstructing calculus at the left distal ureter measuring 0.6 cm, (2/149). No additional kidney stones. No perinephric fat stranding. There is normal bilateral renal enhancement. Renal calyces appear normal in morphology when filled with contrast. Opacified portions of both ureters demonstrate normal caliber. No additional upper urinary tract filling defect. Bladder: Bladder wall thickness is normal. No calcified bladder stones. OTHER: Lower chest: Left lung base pulmonary nodule measuring 0.5 cm. Right lung base pulmonary nodule measuring 0.5 cm. Unchanged since 2020. Three-vessel coronary artery calcifications. Liver: No solid mass. Gallbladder: Decompressed. Biliary ducts: No biliary dilation. Pancreas: No ductal dilation. Spleen: Prominent size. Adrenal Glands: No adrenal nodules. Stomach and Bowel: Normal colonic caliber, without significant wall thickening. The appendix is not dilated. No small bowel obstruction. Stomach is within normal limits. Peritoneum: No abnormal intraperitoneal fluid. No free air. Ventral Wall: No hernia. Abdominal Nodes: No retroperitoneal or mesenteric adenopathy by size criteria. Vessels: Aorta and inferior vena cava are normal in size. PELVIS: Pelvic Organs: Unremarkable. Pelvic Nodes: No enlarged lymph nodes. Miscellaneous: No inguinal hernias are seen. Bones: No aggressive osseous abnormality. Right hip arthroplasty. Mild thickening adjacent to the right hip. Multilevel DDD. IMPRESSION: 1. Obstructing calculus in the distal left ureter measuring 0.6 cm. No significant hydronephrosis. 2. No additional kidney stones. 3. No additional upper urinary tract filling defect. No solid renal mass. Dictated by: Omari Benjamin M.D. on 08/24/2024 at 13:50 Approved by: Omari Benjamin M.D. on 08/24/2024 at 14:01
== END ==
LOC: CT 07:53
PROVIDERS: PCP Family Medicine; Referring Provider Urology; Visit Provider Urology
DX: N20.1 Calculus of ureter (principal); R31.0 Gross hematuria; R91.8 Other nonspecific abnormal finding of lung field; I25.10 Atherosclerotic heart disease of native coronary artery without angina pectoris; Z96.641 Presence of right artificial hip joint
CPT/HCPCS: 74178; Q9967

== ENCOUNTER → 2024-10-18 08:15 | Outpatient (CLI) | payer MEDICARE, OTHER, SELFPAY ==
--- NOTE | 2024-10-18 08:16 | DI.CT.S_ITS ---
PROCEDURE: CT PEL WO CON INDICATIONS: 73 y/o M w/ 6mm left distal ureterolith, eval for passage. TECHNIQUE: Noncontrast 3 mm axial sections acquired through the pelvis, with coronal and sagittal reformatting. COMPARISON: [facility], CT, CT IVP A/P W/WO, 08/24/2024, 8:01. FINDINGS: Image quality: Excellent. Soft tissues: 6-7 mm calculus is re-identified in the distal left ureter without significant change in position. No proximal hydroureter to the extent the orders included on this exam. The right mid to distal ureter appears normal. The urinary bladder is decompressed. The prostate gland is mildly enlarged. Visible bowel loops are normal. Vessels are normal caliber and demonstrate peripheral vascular calcification. No enlarged pelvic lymph nodes or masses. Bones: Right hip arthroplasty components are present. There is a subcutaneous fluid collection anterior and lateral to the right hip measuring 3.1 x 3.1 x 4.3 cm, not present previously. Poor soft tissue definition surrounding the right hip arthroplasty. Partial ankylosis of sacroiliac joints. IMPRESSION: No change in position of nonobstructing distal left ureteral calculus. Mild prostatomegaly. Right anterolateral subcutaneous fluid collection, new since the prior exam. This may be a seroma or hematoma. Cannot exclude infection. Dictated by: Sloane Dennis M.D. on 10/18/2024 at 11:53 Approved by: Sloane Dennis M.D. on 10/18/2024 at 12:02
== END ==
PROVIDERS: PCP Family Medicine; Referring Provider Urology; Visit Provider Urology
DX: N20.1 Calculus of ureter (principal); N40.0 Benign prostatic hyperplasia without lower urinary tract symptoms
CPT/HCPCS: 72192

== ENCOUNTER 2024-10-24 07:54 | Day surgery (SDC) | payer MEDICARE, OTHER, SELFPAY ==
[2024-10-24] VITALS (10 sets, daily range): BP systolic 143–192; BP diastolic 83–101; PULSE 66–87; RESP 8–20; TEMP 36.1–36.6; O2SAT 95–98; BMI 33.7
[2024-10-24] MEDS: LACTATED RINGERS 1,000 ML 21 ML IV (08:10)
[2024-10-24] MEDS: ACETAMINOPHEN 325 MG TABLET 975 MG PO ×2 (08:11→08:29)
--- NOTE | 2024-10-24 09:30 | PM.PREOP ---
Pre-operative Note COVID-19 COVID-19 status: Not tested Interval Note History & Physical reviewed/Exam performed by Physician: Yes Changes to H&P: No
[2024-10-24] MEDS: CEFAZOLIN VIAL 1 GM in SODIUM CHLORIDE 0.9% 100 ML IV (10:04)
[2024-10-24] MEDS: CEFAZOLIN 2 GM/100 ML PREMIX 100 ML IV (10:04)
--- NOTE | 2024-10-24 10:28 | SUR.OPER ---
Lithotomy on padded OR bed, head on pillow, arms secured on padded arm boards at <90 degrees abduction. Legs secured in padded yellow fins stirrups.
[2024-10-24] MEDS: iopamidoL 30 ML VIAL 10 ML INTRA-ARTI (10:47)
--- NOTE | 2024-10-24 11:14 | DI.RAD.S_ITS ---
PROCEDURE: XR ABDOMEN MIN 2V INDICATIONS: LEFT STENT PLACEMENT TECHNIQUE: 2 views of the abdomen were acquired. COMPARISON: [facility], CT, CT PEL WO CON, 10/18/2024, 8:37. [facility], CT, CT IVP A/P W/WO, 08/24/2024, 8:01. Findings and impression: Fluoroscopic image guidance for left urologic procedure, ureteral stent is visualized. Please see operative note for full details. Dictated by: Yash Hunter M.D. on 10/24/2024 at 13:06 Approved by: Yash Hunter M.D. on 10/24/2024 at 13:07
--- NOTE | 2024-10-24 11:14 | PM.OP.1 ---
Procedure & Clinicians Procedure: Cystoscopy Left retrograde ureteropyelogram Left ureteroscopy, laser lithotripsy Left ureteral stent placement Intraoperative interpretation of fluoroscopic images, total time < 1 hour Same procedure as scheduled: Yes Indications: 73 y/o M noted to have a 6mm left distal ureterolith a few months ago who has now failed medical expulsion therapy. Therefore, discussed the need for definitive stone management via a left ureteroscopy, laser lithotripsy and left ureteral stent placement. Surgeon: Ruperto Dugan Click Yes if Unassisted: Yes Anesthesia Type: General Operative Notes Findings: Moderate sized distal left ureterolith Closure Type: not applicable Specimen(s): other (left ureteral stone) Estimated Blood Loss (mL): 3 Blood products transfused: none Procedure in detail: Patient was identified in the preoperative holding area and consent confirmed. He was then brought to the operating room where general anesthesia was induced.? He was placed in the low lithotomy position. He was then prepped and draped in the usual sterile fashion. A surgical timeout was conducted and all were in agreement. Access to the bladder was obtained via a 30 degree cystoscope.? Complete cystoscopy was then performed and no concerning bladder masses or lesions were appreciated.? Bilateral ureteral orifices were easily identified and noted to be orthotopic in nature.? The left ureteral orifice was then cannulated using a 0.035 sensor tip ureteral guidewire and a 5Fr ureteral catheter was advanced over the guidewire and into the distal left ureter.? The guidewire was then removed and a retrograde ureteropyelogram was performed which noted a moderate sized filling defect in the proximal ureter, consistent with CT findings of a stone in this area.? The ureteral guidewire was then readvanced through the ureteral catheter and into the left renal pelvis.? The ureteral catheter was then removed and a semirigid ureteroscope was easily advanced into his left ureter alongside the guidewire and to the level of the stone.? A 200 micron laser fiber was then utilized to perform laser lithotripsy.? All stone fragments >1mm in size were removed via the stone basket and sent for chemical analysis.? The ureter was then directly visualized upon removal of the ureteroscope and noted to be stone free.? A 6Fr multi-length JJ ureteral stent with string was then advanced over the ureteral guidewire.? Upon removal of the guidewire, a good curl was noted in the left renal pelvis and the bladder using fluoroscopy.? The bladder was then drained.? Anesthesia was reversed, he was extubated in the OR and transferred to the PACU in stable condition for recovery. Complications: none Post-operative Condition: stable Disposition: PACU Plan for aftercare: Discharge home from PACU. Will remove his left ureteral stent on the morning of 27 Oct 2024. Will have him return to Urology clinic in 10-12 weeks to discuss the results of his stone analysis. He will have a RBUS performed roughly 8 weeks from now to evaluate for residual left hydronephrosis and this will be reviewed at his postoperative appointment as well.
--- NOTE | 2024-10-24 11:39 | SUR.PHASEII ---
Dr. Dugan notified patient reported bladder/penis burnging sensation. VVO for Oxybuynin and Pyridium
[2024-10-24] MEDS: PHENAZOPYRIDINE 100 MG TABLET 200 MG PO (11:52)
[2024-10-24] MEDS: OXYBUTYNIN 5 MG TABLET PO (11:52)
[2024-10-24] MEDS: KETOROLAC 30 MG/ML VIAL IV (12:58)
--- NOTE | 2024-10-24 13:03 | SUR.PHASEII ---
Patient up to the bathroom, voided. Reported feeling constipated and uncomfortable. Declined narcotic. Dr. Dugan notified and he spoke with patient. VVO for Toradol, clarified patient may take NSAID while on anticoagulant. stated he has not taken the medication for a couple days and may take Toradol, which was given.
== END 2024-10-24 13:37 | disposition home or self-care (01) ==
PROVIDERS: PCP Family Medicine; Referring Provider Urology; Visit Provider Urology
PROC: (CPT 52356; principal; 2024-10-24 09:45)
DX: N20.1 Calculus of ureter (principal)
CPT/HCPCS: 52356; 74019; 76000; 85610; J0690; J1100; J1885; J2405; J2704; J3010; Q9967

== ENCOUNTER → 2024-10-24 11:08 | Outpatient (CLI) | payer MEDICARE, OTHER, SELFPAY ==
[2024-11-22 13:01] LABS: Size 2x2; Stone Analysis Source Left Ureter
== END ==
PROVIDERS: PCP Family Medicine; Referring Provider Urology; Visit Provider Urology
DX: N20.1 Calculus of ureter (principal)
CPT/HCPCS: 82365

== ENCOUNTER 2024-11-07 12:27 | Emergency (ER) | payer MEDICARE, OTHER, SELFPAY ==
[2024-11-07 13:00] VITALS: BP 160/89; PULSE 62; RESP 16; TEMP 36.7; O2SAT 100; BMI 34.3
[2024-11-07 13:20] LABS: Add Manual Diff / Slide Review NO; Basophils Absolute Auto 100 /uL (0-100); Basophils Percent Auto 0.7 % (0-2); Eosinophils Absolute Auto 100 /uL (0-450); Eosinophils Percent Auto 0.9 % (2-4); Hematocrit 38.7 % (41-53); Hemoglobin 12.9 g/dL (13.5-17.5); Lymphocytes Absolute Auto 1500 /uL (1100-4500); Lymphocytes Percent Auto 19.4 % (25-40); Mean Corpuscular HGB Conc 33.4 % (30-36); Mean Corpuscular Hemoglobin 27.3 PG (26-34); Mean Corpuscular Volume 81.6 fL (80-100); Monocytes Absolute Auto 600 /uL (0-900); Monocytes Percent Auto 7.5 % (3-14); Neutrophils Absolute Auto 5700 /uL (1500-7000); Neutrophils Percent Auto 71.5 % (50-75); Platelet Count 287 X10^3/uL (150-400); Red Blood Cell Count 4.74 X10^6/uL (4.5-5.9); Red Cell Distribution Width 15.9 % (11.6-14.8)
[2024-11-07 13:30] LABS: Alanine Aminotransferase 35 IU/L (<50); Albumin 4.3 g/dL (3.5-5.0); Albumin Globulin Ratio 1.2 (1.0-2.8); Alkaline Phosphatase 131 U/L (38-126); Aspartate Aminotransferase 33 IU/L (17-59); BUN Creatinine Ratio 16.7 (6-22); Bilirubin Total 0.8 mg/dL (0.2-1.3); Blood Urea Nitrogen 13 mg/dL (9-20); Calcium 9.7 mg/dL (8.4-10.2); Carbon Dioxide 23 mmol/L (22-32); Chloride 102 mmol/L (98-107); Estimated Glomerular Filt Rate > 60 mL/min (>60); Globulin 3.7 g/dL (1.7-4.1); Glucose 99 mg/dL (80-110); HEMOLYSIS < 15 (0-50); Potassium 3.7 mmol/L (3.4-5.1); Sodium 135 mmol/L (137-145)
[2024-11-07 15:39] LABS: Lactate (Lactic Acid) 1.9 mmol/L (0.7-2.1)
[2024-11-07 15:44] LABS: C-Reactive Protein Quant 1.4 mg/dL (<1.0)
--- NOTE | 2024-11-07 16:07 | DI.CT.S_ITS ---
PROCEDURE: CT PELVIS W CON INDICATIONS: abscesss vs hematoma recent R hip arthroplasty TECHNIQUE: After the administration of intravenous contrast, 5 mm thick sections acquired from the iliac crests to the symphysis. 5 mm coronal and sagittal reformats were acquired. For radiation dose reduction, the following was used: automated exposure control, adjustment of mA and/or kV according to patient size. COMPARISON: [facility], CT, CT PEL WO CON, 10/18/2024, 8:37. FINDINGS: Image quality: Diagnostic. Bones: No acute fracture or dislocation. No significant osseous erosions. Diffuse osseous demineralization. Joints: Status post right hip arthroplasty with a moderate hip joint effusion and mild interval organization and enlargement of a 3.7 x 6.9 cm (previously 2.4 x 5.5 cm) (; 01/26-), that tracks through the right tensor fascia masood and right gluteus minimus musculature into the right hip joint Muscles: Mild diffuse muscle atrophy. No intramuscular emphysema. Tendons: Visualized tendon contours are within normal limits. Vessels: Mild aortoiliac atherosclerosis without aneurysmal dilatation. Lymph nodes: No bilateral inguinal or lower retroperitoneal lymphadenopathy by size criteria. Other soft tissues: Nonvisualization of prior left distal ureteral calculus, which may have passed in the interim. No subcutaneous emphysema. IMPRESSION: Mild interval enlargement of a 6.9 cm loculated collection along a prior right hip arthroplasty incision site. This may represent an evolving hematoma (sterile versus infected), seroma, or abscess. Percutaneous aspiration of the most superficial pocket would be recommended for evaluation of underlying infection. Dictated by: Wilfredo Hammond M.D. on 11/07/2024 at 16:59 Approved by: Wilfredo Hammond M.D. on 11/07/2024 at 17:09
[2024-11-07 16:34] LABS: Erythrocyte Sedimentation Rate 38 MM/HR (0-15)
--- NOTE | 2024-11-07 17:27 | ED.SKABFB ---
HPI - Skin/Abscess/Foreign Bdy <Emerita Ansari PA-C - Last Filed: 11/08/24 11:27> General Chief complaint: Skin/Abscess/Foreign Body Stated complaint: sent by Dr Morrell, rt hip swelling and px w infectio Time Seen by Provider: 11/07/24 15:21 History of Present Illness HPI narrative: 74-year-old male with past medical history urolithiasis, CAD, hypertension, atrial fibrillation, sleep apnea, hyperlipidemia, asthma presents to the ED with 3 days of a worsening hematoma of the right hip. Patient had a right hip replacement in June 2024, following which he has had a hematoma that has been slow to resolve. Patient talked to his ortho surgeon in [place] 4 days ago and was prescribed anti-inflammatories. Patient states that over the last 2 days, the hematoma feels a lot bigger and is painful when he walks. Patient denies that it is painful when he pushes on it. Patient saw his PCP Dr. Domínguez this morning who sent him to the ED due to suspicion for an abscess. Patient denies fever, chills, nausea, vomiting, chest pain, shortness of breath. Patient is able to bear weight and walk, although he feels the increasing need for using his cane. Related Data Home Medications Medication Instructions Recorded Confirmed methylcellulose (laxative) 500 mg 500 mg PO DAILY 09/06/19 10/11/24 tablet (Citrucel) aspirin 81 mg tablet,delayed 81 mg PO DAILY 09/05/22 11/07/24 release (Adult Aspirin Regimen) atorvastatin 80 mg tablet 80 mg PO DAILY 09/05/22 11/07/24 lisinopril 40 mg tablet 40 mg PO DAILY 09/05/22 11/07/24 metoprolol succinate 50 mg 50 mg PO DAILY 09/05/22 10/11/24 tablet,extended release 24 hr nitroglycerin 0.4 mg sublingual 0.4 mg sublingual Q5M PRN 09/05/22 11/07/24 tablet (Nitrostat) chlorthalidone 25 mg tablet 25 mg PO DAILY 02/02/24 11/07/24 isosorbide mononitrate 30 mg 30 mg PO DAILY 02/02/24 10/24/24 tablet,extended release 24 hr potassium chloride 20 mEq 20 meq PO DAILY 02/02/24 11/07/24 tablet,extended release albuterol sulfate 90 mcg/actuation 1 - 2 puff inhalation Q4H PRN 10/24/24 11/07/24 aerosol inhaler Wheezing chlorthalidone 25 mg tablet 25 mg PO DAILY 10/24/24 10/24/24 lisinopril 40 mg tablet 40 mg PO DAILY 10/24/24 10/24/24 metoprolol succinate 50 mg 50 mg PO DAILY 10/24/24 11/07/24 tablet,extended release 24 hr rivaroxaban 20 mg tablet (Xarelto) 20 mg PO DAILY 10/24/24 10/24/24 Previous Rx's Medication Instructions Recorded albuterol sulfate 90 mcg/actuation See Rx Instructions .Route 04/28/24 aerosol inhaler (Ventolin HFA) .COMPLEX #54 grams finasteride 1 mg tablet 1 mg PO DAILY #90 tabs 08/17/24 tamsulosin 0.4 mg capsule 0.4 mg PO DAILY #90 caps 08/17/24 Allergies Allergy/AdvReac Type Severity Reaction Status Date / Time No Known Drug Allergies Allergy Verified 10/24/24 08:58 Review of Systems <Emerita Ansari PA-C - Last Filed: 11/08/24 11:27> Constitutional Constitutional: Denies chills, Denies fatigue, Denies fever(s), Denies frequent falls, Denies lethargy and Denies weakness Eyes Eyes: Denies change in vision, Denies eye discharge, Denies irritation and Denies loss of vision ENT Ears, Nose, Mouth, and Throat: Denies change in voice, Denies dizziness, Denies neck pain, Denies sore throat and Denies throat swelling Cardiovascular Cardiovascular: Denies chest pain, Denies irregular heart rhythm, Denies lightheadedness, Denies palpitations, Denies dyspnea, Denies dyspnea on exertion and Denies orthopnea Respiratory Respiratory: Denies cough, Denies dyspnea, Denies dyspnea on exertion and Denies wheezing Gastrointestinal Gastrointestinal: Denies abdominal pain, Denies change in bowel habits, Denies diarrhea, Denies nausea and Denies vomiting Musculoskeletal Musculoskeletal: Denies neck pain and Denies numbness Integumentary/Breasts Skin/Breast: Denies pruritus, Denies erythema, Denies rash and Denies wounds Comments: Worsening of the hematoma at the site of the hip arthroplasty. Pain with walking. Neurologic Neurologic: Denies behavioral changes, Denies confusion, Denies dizziness, Denies frequent falls, Denies loss of vision, Denies numbness and Denies weakness Psychiatric Psychiatric: Denies anxiety, Denies behavioral changes, Denies confusion, Denies depression, Denies homicidal ideation and Denies suicidal ideation Endocrine Endocrine: Denies fatigue, Denies flushing and Denies palpitations Hematologic/Lymphatic Hematologic/Lymphatic: Denies easy bruising Allergic/Immunologic Allergic/Immunologic: Denies urticaria, Denies throat swelling and Denies wheezing Patient History <Emerita Ansari PA-C - Last Filed: 11/08/24 11:27> Medical History (Updated 11/07/24 @ 18:06 by Emerita Ansari PA-C) 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 Postoperative abscess Normocytic anemia due to blood loss Post-operative pain Medication reaction Hematuria Reactive airway disease Sick sinus syndrome Mixed hyperlipidemia RENATE on CPAP Lower urinary tract symptoms (LUTS) Vision disorder Shoulder pain (~2009) Chronic back pain (~1999) Mumps (~1959) Tinnitus Coronary artery disease Hearing loss (~1999) Disease of spine Measles Chicken pox HTN (hypertension) Chest pain Asthma (~1994) Afib (~2006) Surgical History (Updated 11/07/24 @ 14:02 by Azael Morrell DO) Status post right hip replacement H/O umbilical hernia repair (10/17/19) S/P laminectomy (~09/2021) History of colonoscopy (~2019) Anesthesia History of knee replacement (~12/24/20) History of laminectomy (~09/13/21) History of umbilical hernia repair (11/10/19) H/O cardiac radiofrequency ablation Hx of heart artery stent (~12/2009) Family History Father Cancer Mother History of heart disease Hyperlipidemia Hypertension Sister Cancer Father Cancer Social History household members: spouse Smoking Status: Former smoker alcohol intake: current Smoking Status: Former smoker alcohol intake frequency: a few times a week Exam <Emerita Ansari PA-C - Last Filed: 11/08/24 11:27> Narrative Exam Narrative: Const General:?cooperative, healthy appearing and comfortable HENWI Head:?normal to inspection Ears:?hearing grossly normal bilaterally Nose:?external nose normal Face and sinus:?normal facial exam and sinuses nontender Mouth:?oral mucosae normal Throat:?posterior oropharynx normal Eyes General:?appearance normal, both eyes and all related structures Neck Neck:?normal visual inspection and no lymphadenopathy noted Resp Effort & Inspection:?normal respiratory effort Auscultation:?clear to auscultation bilaterally Cardio Rate:?regular rate Rhythm:?regular rhythm Integumentary Significant induration and fluctuance at the site of the right hip arthroplasty incision, likely hematoma versus abscess. Not tender to palpation. There is some erythema. Neuro General:?patient alert, patient awake and patient oriented x3 Initial Vital Signs Initial Vital Signs: Vital Signs Temperature 98.0 F 11/07/24 13:00 Pulse Rate 62 11/07/24 13:00 Respiratory Rate 16 11/07/24 13:00 Blood Pressure 160/89 H 11/07/24 13:00 Pulse Oximetry 100 11/07/24 13:00 Oxygen Delivery Method Room Air 11/07/24 13:00 <Ana Gorman DO - Last Filed: 11/08/24 12:50> Initial Vital Signs Initial Vital Signs: Vital Signs Temperature 98.0 F 11/07/24 13:00 Pulse Rate 62 11/07/24 13:00 Respiratory Rate 16 11/07/24 13:00 Blood Pressure 160/89 H 11/07/24 13:00 Pulse Oximetry 100 11/07/24 13:00 Oxygen Delivery Method Room Air 11/07/24 13:00 Course <Emerita Ansari PA-C - Last Filed: 11/08/24 11:27> Orders Ordered: ED Orders 11/07/24 13:11 CRP [C-Reactive Protein Quant] Stat Complete Blood Count AUTO DIFF Stat Comprehensive Metabolic Panel Stat ESR [Erythrocyte Sedimentation Rate] Stat Lactate (Lactic Acid) Stat 11/07/24 13:53 Blood Culture Stat 11/07/24 16:07 CT pelvis w con Stat Vital Signs Vital signs: Vital Signs - 8 hr 11/07/24 13:00 Temperature 98.0 F Pulse Rate 62 Respiratory Rate 16 Blood Pressure 160/89 H Pulse Oximetry 100 Oxygen Delivery Method Room Air <DO Otilia Paz Last Filed: 11/08/24 12:50> Orders Ordered: ED Orders 11/07/24 13:11 CRP [C-Reactive Protein Quant] Stat Complete Blood Count AUTO DIFF Stat Comprehensive Metabolic Panel Stat ESR [Erythrocyte Sedimentation Rate] Stat Lactate (Lactic Acid) Stat 11/07/24 13:53 Blood Culture Stat 11/07/24 16:07 CT pelvis w con Stat Vital Signs Vital signs: Vital Signs - 8 hr 11/07/24 13:00 Temperature 98.0 F Pulse Rate 62 Respiratory Rate 16 Blood Pressure 160/89 H Pulse Oximetry 100 Oxygen Delivery Method Room Air MDM - Skin/Abscess/Foreign Bdy <Emerita Ansari PA-C - Last Filed: 11/08/24 11:27> Lab Data 11/07/24 13:11 11/07/24 13:11 Labs: Lab Results 11/07/24 Range/Units 13:11 WBC 8.0 (4.5-11.0) X10^3/uL RBC 4.74 (4.5-5.9) X10^6/uL Hgb 12.9 L (13.5-17.5) g/dL Hct 38.7 L (41-53) % MCV 81.6 (80-100) fL MCH 27.3 (26-34) PG MCHC 33.4 (30-36) % RDW 15.9 H (11.6-14.8) % Plt Count 287 (150-400) X10^3/uL Neut % (Auto) 71.5 (50-75) % Lymph % (Auto) 19.4 L (25-40) % [place] % (Auto) 7.5 (3-14) % Eos % (Auto) 0.9 L (2-4) % Baso % (Auto) 0.7 (0-2) % Neut # (Auto) 5700 (6100-3001) /uL Lymph # (Auto) 1500 (6363-9268) /uL [place] # (Auto) 600 (0-900) /uL Eos # (Auto) 100 (0-450) /uL Baso # (Auto) 100 (0-100) /uL ESR 38 H (0-15) MM/HR Sodium 135 L (137-145) mmol/L Potassium 3.7 (3.4-5.1) mmol/L Chloride 102 (98-107) mmol/L Carbon Dioxide 23 (22-32) mmol/L BUN 13 (9-20) mg/dL Creatinine 0.78 (0.66-1.25) mg/dL Estimated GFR > 60 (>60) mL/min BUN/Creatinine Ratio 16.7 (6-22) Glucose 99 (80-110) mg/dL Lactate 1.9 (0.7-2.1) mmol/L Calcium 9.7 (8.4-10.2) mg/dL Total Bilirubin 0.8 (0.2-1.3) mg/dL AST 33 (17-59) IU/L ALT 35 (<50) IU/L Alkaline Phosphatase 131 H (38-126) U/L C-Reactive Protein 1.4 H (<1.0) mg/dL Total Protein 8.0 (6.3-8.2) g/dL Albumin 4.3 (3.5-5.0) g/dL Globulin 3.7 (1.7-4.1) g/dL Albumin/Globulin Ratio 1.2 (1.0-2.8) MDM Narrative Medical decision making narrative: 74-year-old male with past medical history urolithiasis, CAD, hypertension, atrial fibrillation, sleep apnea, hyperlipidemia, asthma presents to the ED with 3 days of a worsening hematoma of the right hip. Concern for abscess versus hematoma versus osteomyelitis versus sepsis versus other. Will obtain labs, lactate, ESR, CRP, CT scan. CRP elevated to 1.4, ESR elevated to 38. WBC is within normal limits at 8. CT scan of the pelvis shows a mild interval enlargement of a 6.9 cm loculated collection along a prior right hip arthroplasty incision site. This may represent an evolving hematoma space (sterile versus infected), seroma, or abscess. Percutaneous itchiness aspiration of the most superficial pocket would be recommended for evaluation of underlying infection. Ortho surgeon on-call Dr. Nuñez was consulted, he recommends outpatient follow-up with patient's ortho surgeon for a aspiration to test fro infection. He does not recommend any emergent intervention today. Patient's ortho surgeon Dr. Terry was consulted, he agrees to see the patient tomorrow in clinic versus admitting the patient tonight. He agrees that the next logical step would be to do an aspiration to check for infection versus other. Antibiotics deferred until after the procedure. Discussed findings and plan with patient, patient elects to see his surgeon tomorrow in clinic. Dr. Terry made aware of plan, patient appointment at 1:30 p.m. tomorrow. ED return precautions were discussed with patient. Patient verbalized understanding. Medical records reviewed: Yes <Ana Gorman, DO - Last Filed: 11/08/24 12:50> Lab Data Labs: Lab Results 11/07/24 Range/Units 13:11 WBC 8.0 (4.5-11.0) X10^3/uL RBC 4.74 (4.5-5.9) X10^6/uL Hgb 12.9 L (13.5-17.5) g/dL Hct 38.7 L (41-53) % MCV 81.6 (80-100) fL MCH 27.3 (26-34) PG MCHC 33.4 (30-36) % RDW 15.9 H (11.6-14.8) % Plt Count 287 (150-400) X10^3/uL Neut % (Auto) 71.5 (50-75) % Lymph % (Auto) 19.4 L (25-40) % [place] % (Auto) 7.5 (3-14) % Eos % (Auto) 0.9 L (2-4) % Baso % (Auto) 0.7 (0-2) % Neut # (Auto) 5700 (6312-8738) /uL Lymph # (Auto) 1500 (8504-3293) /uL [place] # (Auto) 600 (0-900) /uL Eos # (Auto) 100 (0-450) /uL Baso # (Auto) 100 (0-100) /uL ESR 38 H (0-15) MM/HR Sodium 135 L (137-145) mmol/L Potassium 3.7 (3.4-5.1) mmol/L Chloride 102 (98-107) mmol/L Carbon Dioxide 23 (22-32) mmol/L BUN 13 (9-20) mg/dL Creatinine 0.78 (0.66-1.25) mg/dL Estimated GFR > 60 (>60) mL/min BUN/Creatinine Ratio 16.7 (6-22) Glucose 99 (80-110) mg/dL Lactate 1.9 (0.7-2.1) mmol/L Calcium 9.7 (8.4-10.2) mg/dL Total Bilirubin 0.8 (0.2-1.3) mg/dL AST 33 (17-59) IU/L ALT 35 (<50) IU/L Alkaline Phosphatase 131 H (38-126) U/L C-Reactive Protein 1.4 H (<1.0) mg/dL Total Protein 8.0 (6.3-8.2) g/dL Albumin 4.3 (3.5-5.0) g/dL Globulin 3.7 (1.7-4.1) g/dL Albumin/Globulin Ratio 1.2 (1.0-2.8) Discharge Plan Departure Patient Disposition: Home Clinical Impression: Hematoma Instructions: DI for Wound Infection Activity Restrictions/Additional Instructions: You were evaluated in the ED today due to suspicion for an abscess at at the incision site. We obtained labs and a CT scan. The CT scan does show a fluid collection that might be suspicious for either a hematoma, abscess, or seroma. We discussed the findings with your ortho surgeon Dr. Terry, and he would like to aspirate some of that fluid to test for infection. You would like you to see him in clinic tomorrow at 1:30 a.m. at the [facility]. We are sending your CT scan and labs for you to take to the appointment. If prior to seeing him, you have worsening symptoms, please return to the ED. Prescriptions: No Action albuterol sulfate [Ventolin HFA] 90 mcg/actuation HFA aerosol inhaler See Rx Instructions .ROUTE .COMPLEX Qty: 54 12RF Dose Instruction: Inhale 1-2 puffs using inhaler every four hours as needed Rx Instructions: Inhale 1-2 puffs using inhaler every four hours as needed finasteride 1 mg tablet 1 mg PO DAILY Qty: 90 0RF isosorbide mononitrate 30 mg tablet extended release 24 hr 30 mg PO DAILY potassium chloride 20 mEq tablet extended release 20 meq PO DAILY chlorthalidone 25 mg tablet 25 mg PO DAILY atorvastatin 80 mg tablet 80 mg PO DAILY metoprolol succinate 50 mg tablet extended release 24 hr 50 mg PO DAILY lisinopril 40 mg tablet 40 mg PO DAILY nitroglycerin [Nitrostat] 0.4 mg tablet, sublingual 0.4 mg sublingual Q5M PRN Rx Instructions: do not exceed 3 doses per episode aspirin [Adult Aspirin Regimen] 81 mg tablet,delayed release (DR/EC) 81 mg PO DAILY Citrucel 500 mg tablet 500 mg PO DAILY chlorthalidone 25 mg tablet 25 mg PO DAILY albuterol sulfate 90 mcg/actuation HFA aerosol inhaler 1 - 2 puff INHALATION Q4H PRN (Reason: Wheezing) Xarelto 20 mg tablet 20 mg PO DAILY lisinopril 40 mg tablet 40 mg PO DAILY metoprolol succinate 50 mg tablet extended release 24 hr 50 mg PO DAILY tamsulosin 0.4 mg capsule 0.4 mg PO DAILY Qty: 90 3RF Referrals: Azael Morrell DO [Primary Care Provider] - Stand Alone Forms: Patient Portal/API/Survey ED Sign-out <Ana Gorman DO - Last Filed: 11/08/24 12:50> Cosign ED Attending Cosignature Attestation: I was available for consultation.
[2024-11-07 17:28] VITALS: BP 168/92; PULSE 63; RESP 16; O2SAT 99
--- NOTE | 2024-11-07 17:44 | PC.NURSE ---
Results discussed with patient. Ct being placed on disc and Orthopedic at [facility] being paged to discuss results
== END 2024-11-07 18:12 | disposition home or self-care (01) ==
PROVIDERS: Emergency Medicine; Emergency Provider Student in an Organized Health Care Education/Training Program; PCP Family Medicine
DX: M96.840 Postprocedural hematoma of a musculoskeletal structure following a musculoskeletal system procedure (principal); Z96.641 Presence of right artificial hip joint
CPT/HCPCS: 36415; 72193; 80053; 83605; 85025; 85651; 86140; 87040; 99284; Q9967

== ENCOUNTER → 2025-01-26 15:15 | Outpatient (CLI) | payer MEDICARE, OTHER, SELFPAY ==
[2025-01-26 21:09] LABS: Influenza A - CEPHEID Flu A NEGATIVE (NEGATIVE); Influenza B - CEPHEID Flu B NEGATIVE (NEGATIVE); Respiratory Syncytial Virus Negative (Negative)
[2025-01-26 21:11] LABS: COVID-19 CEPHEID 4-PLEX PCR Negative (Negative)
== END ==
PROVIDERS: PCP Family Medicine; Visit Provider Physician Assistant
DX: R05.1 Acute cough (principal)
CPT/HCPCS: 0241U

== ENCOUNTER → 2025-07-17 11:09 | Outpatient (CLI) | payer MEDICARE, OTHER, SELFPAY ==
--- NOTE | 2025-07-17 11:11 | DI.CT.S_ITS ---
PROCEDURE: CT SHOULDER RIGHT WITHOUT CON INDICATIONS: shoulder pain TECHNIQUE: Noncontrast 0.75 mm thick sections acquired from the acromioclavicular joint to the inferior scapula, with coronal and sagittal reformatting. COMPARISON: [facility], CR, XR SHOULDER 2+ VIEWS RIGHT, 05/25/2025, 10:04. FINDINGS: Image quality: Excellent. Bones: No fracture. Severe glenohumeral joint degenerative arthrosis with gaba-fi-pznb articulation and large peripheral osteophytosis. There is full-thickness cartilage loss of the anterior glenohumeral joint. Moderate degenerate arthrosis of the acromioclavicular joint. Soft tissues: No significant atrophy or fatty replacement of the rotator cuff musculature. Intact deltoid. Large volume fluid in the distal long head of biceps tendon sheath. Moderate volume fluid in the subcoracoid recess. No axillary lymphadenopathy. Linear scarring in the superior basilar segment of the right lower lobe. IMPRESSION: Right glenohumeral joint severe degenerate arthrosis with hfbb-ba-kdar articulation and large osteophytes. Dictated by: Nghia Cruz M.D. on 07/17/2025 at 14:02 Approved by: Nghia Cruz M.D. on 07/17/2025 at 14:05
== END ==
LOC: CT 11:11
PROVIDERS: PCP Family Medicine; Referring Provider Orthopaedic Surgery; Visit Provider Orthopaedic Surgery
DX: M19.011 Primary osteoarthritis, right shoulder (principal); M25.511 Pain in right shoulder
CPT/HCPCS: 73200

== ENCOUNTER → 2025-07-25 12:26 | Outpatient (CLI) | payer MEDICARE, OTHER, SELFPAY ==
--- NOTE | 2025-07-25 12:32 | DI.MRI.S_ITS ---
PROCEDURE: MR LUMBAR SPINE WO CON INDICATIONS: Postsurgical back pain TECHNIQUE: Noncontrast sagittal T1 spin echo and T2 fast echo, sagittal STIR, and T2 fast spin echo through the lumbar spine. In cases with scoliosis, additional coronal T2 fast spin echo may be performed. COMPARISON: [facility], CR, XR LUMBAR SPINE MIN 4V, 07/09/2025, 15:38. [facility], CR, XR ABDOMEN MIN 2V, 10/24/2024, 10:46. [facility], MR, MR LUMBAR SPINE WITHOUT CONTRAST, 02/20/2024, 10:38. FINDINGS: Image quality: Excellent. Alignment and Curvature: Trace retrolisthesis L1-2, L2-3 and minimally at L3-4. Bone Marrow: There is diffuse osseous edema throughout the T12 vertebral body, predominantly in a horizontal bandlike distribution extending slightly into the right pedicle. Short fracture planes are seen along the superior endplate at the right posterolateral corner. Mild superior endplate depression, new since 08/24/24, but present 07/09/25. No other marrow edema. Minor heterogeneous Modic changes at the L2-3 and L3-4 endplates. L2-3 and L3-4 laminectomy. Spinal Cord: Conus medullaris terminates at the L1-2 level. Visualized cord demonstrates normal signal and size. Paraspinous Soft Tissues: No paravertebral masses. T12-L1: Minimal diffuse circumferential disc bulge. No significant central canal or foraminal stenosis. L1-L2: Moderate disc height loss and diffuse circumferential disc bulge flattening the anterior thecal sac. There is moderate epidural lipomatosis and crowding of the central canal nerve roots. Mild ligamentum flavum and facet arthropathy. Moderate left foraminal narrowing. Moderate central canal narrowing. No significant change compared to prior. L2-L3: Severe disc height loss and circumferential disc osteophyte. Laminectomy changes and moderate facet arthropathy. Zbpm-qk-[id number] bilateral foraminal stenosis, left worse than right. Yqzh-li-qwftlucz central canal narrowing. No significant change. L3-L4: Severe disc height loss and moderate circumferential disc osteophyte. Moderate facet arthropathy. Laminectomy change. Mild bilateral foraminal stenosis, left worse than right. Mild central canal narrowing. No significant change. L4-L5: Mild disc height loss and circumferential disc bulge flattening the anterior CSF. Mild facet hypertrophy. Moderate ligamentum flavum hypertrophy. Epidural lipomatosis contributes to irra-lg-[id number] central canal narrowing. Mild bilateral foraminal stenosis. No significant change. L5-S1: Minor broad-based posterior disc bulge. Mild to moderate bilateral foraminal narrowing. No change. IMPRESSION: Subacute T12 compression fracture with persistent osseous edema. Consider vertebroplasty for symptomatic relief if eligible. No significant change to multilevel central canal and foraminal stenosis due to disc and facet degeneration throughout the lumbar spine. Dictated by: Sloane Dennis M.D. on 07/25/2025 at 17:10 Approved by: Sloane Dennis M.D. on 07/25/2025 at 17:28
--- NOTE | 2025-07-25 12:32 | DI.RAD.S_ITS ---
PROCEDURE: XR HIP W PEL IF DONE RT 2V INDICATIONS: Right hip pain, instability, history of rt hip replacment TECHNIQUE: Four views of the hip were acquired. COMPARISON: None. FINDINGS: Bones: Cerclage wires transfixes a subtotally unified lesser trochanteric fracture of the right hip. SI and hip joints: Right total hip prostheses in place. There is lateral canting of the acetabular component. No evidence of loosening or infection. Moderate left hip and bilateral SI degeneration noted . Soft tissues: No soft tissue swelling, calcification or mass. IMPRESSION: Right total hip prostheses as described. Other chronic findings Dictated by: Jakob Villa M.D. on 07/26/2025 at 12:58 Approved by: Jakob Villa M.D. on 07/26/2025 at 12:59
== END ==
PROVIDERS: PCP Family Medicine; Referring Provider Family Medicine; Visit Provider Family Medicine
DX: M48.54XA Collapsed vertebra, not elsewhere classified, thoracic region, initial encounter for fracture (principal); M47.818 Spondylosis without myelopathy or radiculopathy, sacral and sacrococcygeal region; M54.50 Low back pain, unspecified; M16.12 Unilateral primary osteoarthritis, left hip; M25.551 Pain in right hip; M25.351 Other instability, right hip; G89.29 Other chronic pain; Z98.890 Other specified postprocedural states; Z96.641 Presence of right artificial hip joint
CPT/HCPCS: 72148; 73502

== ENCOUNTER → 2025-08-09 14:10 | Outpatient (CLI) | payer MEDICARE, OTHER, SELFPAY ==
--- NOTE | 2025-08-09 14:12 | DI.RAD.S_ITS ---
PROCEDURE: XR DEXA AXIAL SKELETON INDICATIONS: vertebral fractures COMPARISON: [facility], MR, MR LUMBAR SPINE WO CON, 07/25/2025, 13:04. FINDINGS: Lumbar Spine: Bone mineral density 1.152 g/cm2, T score 0.7. Left Femoral Neck: Bone mineral density 0.698 g/cm2, T score -1.4. Left Hip: Bone mineral density 0.841 g/cm2, T score -0.8. Fracture Risk Calculation (when applicable): 10-year fracture risk of a major osteoporotic fracture 10 percent and of a hip fracture 2.5 percent. (T score greater or equal to -1.0 to: NORMAL) (T score from -1.1 to -2.4: OSTEOPENIA) (T score less than or equal to -2.5: OSTEOPOROSIS) IMPRESSION: Osteopenia by bone mineral density. Given clinical history of T12 vertebral body fracture, this means clinical criteria for osteoporosis. Follow-up guidelines as follows: Osteoporosis: Consider a repeat DEXA and Vertebral Fracture Assessment (VFA) exam in 2 years or sooner if medically necessary, to reassess this patient's status. Osteopenia: Consider a repeat DEXA in 2-3 years to reassess this patient's status, or if there is a new clinical indication. Normal: Consider a repeat DEXA in 5 years or sooner, or if there is a new clinical indication. All treatment decisions require clinical judgment and consideration of individual patient factors, including patient preferences, comorbidities, previous drug use, risk factors not captured in the FRAX model (e.g., frailty, falls, vitamin D deficiency, increased bone turnover, interval significant decline in bone density ) and possible under- or over-estimation of fracture risk by FRAX. In addition, the NOF Guide recommends that FDA-approved medical therapies be considered in postmenopausal women and men age >= 50 years with a: * Hip or vertebral (clinical or morphometric) fracture * T-score of <=-2.5 at the spine or hip * Ten-year fracture probability by FRAX of >= 3% for hip fracture or >=20% for major osteoporotic fracture. Dictated by: Nghia Cruz M.D. on 08/09/2025 at 16:21 Approved by: Nghia Cruz M.D. on 08/09/2025 at 16:23
== END ==
PROVIDERS: PCP Family Medicine; Referring Provider Family Medicine; Visit Provider Family Medicine
DX: M85.852 Other specified disorders of bone density and structure, left thigh (principal); S22.000A Wedge compression fracture of unspecified thoracic vertebra, initial encounter for closed fracture
CPT/HCPCS: 77080

== ENCOUNTER → 2025-08-29 09:45 | Outpatient (CLI) | payer MEDICARE, OTHER, SELFPAY ==
[2025-08-29 10:23] LABS: Hematocrit 44.4 % (41-53); Hemoglobin 15.3 g/dL (13.5-17.5); Mean Corpuscular HGB Conc 34.4 % (30-36); Mean Corpuscular Hemoglobin 28.4 PG (26-34); Mean Corpuscular Volume 82.7 fL (80-100); Platelet Count 198 X10^3/uL (150-400)
[2025-08-29 11:09] LABS: Alanine Aminotransferase 31 IU/L (<50); Albumin 4.6 g/dL (3.5-5.0); Albumin Globulin Ratio 1.3 (1.0-2.8); Alkaline Phosphatase 120 U/L (38-126); Blood Urea Nitrogen 20 mg/dL (9-20); Calcium 10.3 mg/dL (8.4-10.2); Carbon Dioxide 26 mmol/L (22-32); Chloride 101 mmol/L (98-107); Cholesterol 138 mg/dL (140-199); Estimated Glomerular Filt Rate > 60 mL/min (>60); Globulin 3.5 g/dL (1.7-4.1); Glucose 109 mg/dL (70-99); HDL Cholesterol 67 mg/dL (40-60); HEMOLYSIS < 15 (0-50); Potassium 4.8 mmol/L (3.4-5.1); Sodium 138 mmol/L (137-145); Total Protein 8.1 g/dL (6.3-8.2); Triglycerides 75 mg/dL (35-150)
== END ==
PROVIDERS: PCP Family Medicine; Referring Provider Internal Medicine Cardiovascular Disease; Visit Provider Internal Medicine Cardiovascular Disease
DX: E78.5 Hyperlipidemia, unspecified (principal); I10 Essential (primary) hypertension
CPT/HCPCS: 36415; 80053; 80061; 85027